=== PATIENT | male | born 1945 | race Caucasian/White ===

== ENCOUNTER → 2019-04-05 10:19 | Outpatient (BNVA) | payer MEDICARE, SELFPAY | PROVIDERS: Family Provider Family Medicine; PCP Family Medicine; Visit Provider Family Medicine | DX: D69.9 Hemorrhagic condition, unspecified (principal); Z79.01 Long term (current) use of anticoagulants | CPT/HCPCS: 85610 ==

== ENCOUNTER → 2019-04-18 10:32 | Outpatient (BNVA) | payer MEDICARE, SELFPAY | PROVIDERS: Family Provider Family Medicine; PCP Family Medicine; Visit Provider Family Medicine | DX: Z79.01 Long term (current) use of anticoagulants (principal) | CPT/HCPCS: 85610 ==

== ENCOUNTER → 2019-04-26 12:02 | Outpatient (BNVA) | payer MEDICARE, SELFPAY | PROVIDERS: Family Provider Family Medicine; PCP Family Medicine; Visit Provider Family Medicine | DX: I48.91 Unspecified atrial fibrillation (principal) | CPT/HCPCS: 85610 ==

== ENCOUNTER → 2019-05-28 10:33 | Outpatient (BNVA) | payer MEDICARE, SELFPAY | PROVIDERS: Family Provider Family Medicine; PCP Family Medicine; Visit Provider Family Medicine | DX: D69.9 Hemorrhagic condition, unspecified (principal) | CPT/HCPCS: 85610 ==

== ENCOUNTER → 2019-08-21 11:01 | Outpatient (BNVA) | payer MEDICARE, SELFPAY | PROVIDERS: Family Provider Family Medicine; PCP Family Medicine; Visit Provider Family Medicine | DX: Z79.01 Long term (current) use of anticoagulants (principal) | CPT/HCPCS: 85610 ==

== ENCOUNTER → 2019-08-27 09:54 | Outpatient (BNVA) | payer MEDICARE, SELFPAY | PROVIDERS: Family Provider Family Medicine; PCP Family Medicine; Visit Provider Nurse Practitioner Family | DX: I50.32 Chronic diastolic (congestive) heart failure (principal); E11.9 Type 2 diabetes mellitus without complications; R39.16 Straining to void | CPT/HCPCS: 80053; 80061; 83036; 84153; 84439; 84443 ==

== ENCOUNTER → 2019-10-01 09:35 | Outpatient (BNVA) | payer MEDICARE, SELFPAY | PROVIDERS: Family Provider Family Medicine; PCP Family Medicine; Visit Provider Urology | DX: R39.16 Straining to void (principal); R97.20 Elevated prostate specific antigen [PSA] | CPT/HCPCS: 81001; 84153 ==

== ENCOUNTER → 2019-10-12 08:10 | Day surgery (SDC) | payer MEDICARE, SELFPAY ==
[2019-10-12 08:18] VITALS: BP 132/73; PULSE 62; RESP 16; TEMP 36.4; O2SAT 97
[2019-10-12] MEDS: sodium chloride 0.9% 1,000 ML 30 ML IV (08:30)
[2019-10-12 08:32] LABS: Glucose Point of Care 188 mg/dL (70-110)
--- NOTE | 2019-10-12 08:45 | ANES.PREANE2 ---
Pre-Anesthetic Assessment Pre-Anesthetic Assessment: Height/Weight: Height 1.78 m Weight 141.521 kg Temp Pulse Resp BP Pulse Ox 97.5 F L 62 16 132/73 97 10/12/19 08:18 10/12/19 08:18 10/12/19 08:18 10/12/19 08:18 10/12/19 08:18 Preop Diagnosis: tori Proposed Procedure: Operation Date: 10/12/19 09:15 Proposed Procedures p Colonoscopy 10891 Z86.010(Not Applicable) - Juanito Miranda MD Was Beta Tyler taken within 24 hours: Yes Last intake: Intake Last Liquid Date 10/11/19 Last Liquid Time 20:30 Last Solid Date 10/10/19 Social: Social History: No alcohol and No tobacco Exam: Pre-Anes Outpt Exam: alert, oriented x 3, clear to auscultation bilaterally and regular rate & rhythm Airway: Submandibular: WNL Cervical ROM: WNL MP: 2 Dentition: False History/ROS: No significant history except as noted and No significant complaints Pulmonary: Pulmonary: FAN, Sleep apnea and SOB CV/HEM: CV/HEM: Afib, Arrythmia, CAD and HTN : : Chronic renal Insufficiency Hepatic: Hepatic: None reported GI: GI: None reported Metabolic: Metabolic: DM and Morbid obesity Musc/skel: Musc/skel: None reported Neuropsych: Neuropsych: None reported Anesthetic Plan: ASA status: 3 Anesthesia: MAC Risk of > 500 ml blood loss (7ml/kg in children): No Meds/Allergies Current Medications: Current Medications Generic Name Dose Route Start Last Admin Trade Name Freq PRN Reason Stop Dose Admin Sodium Chloride 1,000 mls @ 30 ml s/hr 10/12/19 08:15 10/12/19 08:30 Sodium Chloride 0.9% IV 30 mls/hr .Q24H MAYDA Administration PFSH Anesthesia PFSH: Medical History (Updated 10/03/19 @ 15:23 by Juanito Miranda MD) Afib ASHD (arteriosclerotic heart disease) CHF (congestive heart failure) CKD (chronic kidney disease) Diabetes Elevated PSA Enrolled in chronic care management Sleep apnea Surgical History H/O cardiac radiofrequency ablation H/O heart artery stent Family History Mother , 83 Diabetes Hypertension CAD (coronary artery disease) Father , 73 CAD (coronary artery disease) Social History (Updated 10/03/19 @ 14:37 by FRANCSICO Dumont) Smoking and tobacco status: never smoked Alcohol intake: never Marital status: Current occupational status: retired History of recent travel: No Data Anesthesia Other Labs: Laboratory Results - last 48 hr 10/12/19 08:30 POC Glucose 188 Cardiac Studies: No Data to Display
--- NOTE | 2019-10-12 09:29 | W.PM.OPSUD ---
Surgery/Procedure H&P Update DATE OF PROCEDURE: October 12, 2019 DATE H&P PERFORMED: 10/03/19 PREOP DIAGNOSIS: tori PLANNED PROCEDURE: Operation Date: 10/12/19 09:15 Proposed Procedures p Colonoscopy 60968 Z86.010(Not Applicable) - Juanito Miranda MD
--- NOTE | 2019-10-12 09:56 | SUR.OPER ---
1 mL of diluted epi solution injected into bx site
--- NOTE | 2019-10-12 10:12 | SUR.OPER ---
3mL ink placed at bx site of distal ascending colon
[2019-10-12 10:24] VITALS: BP 140/79; PULSE 54; RESP 18; TEMP 36.1; O2SAT 96
--- NOTE | 2019-10-12 10:29 | CT_ITS ---
WS: [id number] CT ABDOMEN PELVIS TECHNIQUE: Contrast-enhanced CT of the abdomen and pelvis with coronal and sagittal reformatted image s. CLINICAL INFORMATION: Mid ascending mass discovered on endoscopy. COMPARISON: None. DLP: 1946.[address] scans at [facility] use at least one of these dose optimization techniques: automat ed exposure control; mA and/or kV adjustment per patient size (includes targeted exams where dose is matched to clinical indication); or iterative reconstruction. FINDINGS: Lobulated polypoid mass in the hepatic flexure measuring 2.3 x 3.4 cm presumably corresponds to the l esion seen on colonoscopy. No significant luminal narrowing. No other visualized lesions. Normal liver. Normal gallbladder. Normal GE junction. Spleen is normal. Fatty atrophy of the pancreas . Small lobulated low-attenuation lesion in or near their the pancreas is nonspecific in appearance. This may represent small pancreatic cyst or peripancreatic lymph node. This can be further evaluated with MRI or followed up with contrast-enhanced CT abdomen pelvis pancreatic protocol. Adrenal glands are normal. Mild renal cortical atrophy. No adenopathy in the upper abdomen. Normal ca liber abdominal aorta. Aortic calcification.Sigmoid diverticulosis. No evidence of acute diverticulitis. Tiny fat-containing umbilical hernia. Slight atelectasis in the lung bases. Minimal lumbar curve. Moderate spondylitic c hanges lumbar spine. CT/CT abdomen pelvis w con* [id number] IMPRESSION: 1. Polypoid intraluminal mass involving the hepatic flexure measuring 2.3 x 3. 4 cm presumably corresponds to the lesion seen on colonoscopy. No other visuali zed lesions. No significant luminal narrowing. 2. No evidence of small or large bowel obstruction. 3. No definite evidence of metastatic disease in the abdomen or pelvis. 4. No abdominal or pelvic lymphadenopathy. 5. Small slightly lobulated low-attenuation lesion or lymph node in or near th e head of the pancreas measuring 1.7 x 1.2 x 2.4 CM. This is nonspecific appear ance and can be further evaluated with MRI or followed up in 3-6 months with co ntrast-enhanced CT abdomen pelvis pancreatic protocol 6. No free fluid in the abdomen or pelvis.
[2019-10-12 10:54] VITALS: BP 121/65; PULSE 56; RESP 18; O2SAT 95
[2019-10-12 11:05] LABS: Basophils # 0.1 10^3/uL (0.0-0.1); Basophils % 0.9 %; Eosinophils # 0.2 10^3/uL (0.0-0.8); Eosinophils % 3.7 %; Hematocrit 36.5 % (42.0-52.0); Lymphocytes # 0.6 10^3/uL (0.8-4.8); Lymphocytes % 10.5 %; Mean Corpuscular HGB Conc 30.1 g/dL (30.0-36.0); Mean Corpuscular Volume 92.9 fL (80-94); Monocytes # 0.7 10^3/uL (0.2-0.9); Neutrophils # 4.03 10^3/uL (1.8-7.7); Neutrophils % 71.7 %; Nucleated Red Blood Cells % 0 %; Platelet Count 228 10^3/cmm (130-400); Red Blood Count 3.93 10^6/uL (4.1-5.3); Red Cell Distribution Width 16.5 % (12.1-15.1); White Blood Count 5.6 10^3/uL (4.0-10.0)
[2019-10-12 11:26] LABS: Fibrinogen 462 mg/dL (174-498); INR 1.26 (0.8-1.2); Partial Thromboplastin Time 26.7 SECONDS (23.9-36.7)
[2019-10-12 11:36] LABS: Platelet Count 228 10^3/cmm (130-400)
[2019-10-12 11:41] LABS: Carcinoembryonic Antigen 4.5 ng/mL (0.0-4.7)
[2019-10-12 11:52] LABS: Alanine Aminotransferase 28 U/L (0-41); Albumin Level 3.7 g/dL (3.5-5.2); Alkaline Phosphatase 95 IU/L (40-130); Aspartate Amino Transferase 32 U/L (0-40); Blood Urea Nitrogen 19 mg/dL (8-23); Calcium 7.8 mg/dL (8.5-10.5); Carbon Dioxide 23 mmol/L (22-29); Chloride 106 mmol/L (98-107); Globulin 2.8 g/dL (1.3-4.6); Glucose 179 mg/dL (65-115); Osmolality Calculated 291 mOsm/kg (285-295); Sodium 140 mmol/L (136-145); Total Bilirubin 0.8 mg/dL (0.15-1.2); Total Protein 6.5 g/dL (6.6-8.7)
[2019-10-12] MEDS: iodixanol 320 mg/mL 100mL Btl IV (13:05)
[2019-10-12] MEDS: iohexol 300 mg/mL 50 mL Btl PO (13:06)
--- NOTE | 2019-10-12 15:17 | P.CONIM_ITS ---
Providers/Reason For Consult Consulting Physican/Specialty*: Dr. Miranda Reason for Consult*: colonic mass Attending Physician: Juanito Miranda MD Primary Care Provider: Armani Ferrara DO History of Present Illness History of Present Illness Luis Grover is a 74 year old male who had undergone a colonoscopy 10 years ago and 5 years ago when polyps were removed. Patient was recently referred due to black stools per rectum. Patient denies any abdominal pain, nausea, vomiting, constipation or diarrhea. No family history of colon cancer. Review of Systems General: Reports: 10 or more systems reviewed and unremarkable except in HPI and below Meds/Allergies Home Medications and Allergies Home Medications Medication Instructions Recorded Confirmed Last Taken Type warfarin 3 mg tablet 3 mg PO .COMPLEX #36 tab 05/28/19 10/10/19 10/08/19 Rx tamsulosin 0.4 mg capsule 0.4 mg PO DAILY #30 cap 06/04/19 10/10/19 Unknown Rx potassium chloride 20 mEq 20 meq PO DAILY #30 tab 06/18/19 10/10/19 Unknown Rx tablet,extended release warfarin 4 mg tablet 4 mg PO .COMPLEX #48 tab 07/10/19 10/10/19 10/08/19 Rx amiodarone 200 mg tablet 200 mg PO DAILY 08/21/19 10/12/19 10/11/19 History aspirin 81 mg tablet,delayed 81 mg PO DAILY 08/21/19 10/10/19 10/08/19 History release ferrous sulfate 325 mg (65 mg 325 mg PO BID 08/21/19 10/12/19 10/11/19 History iron) tablet insulin NPH isoph U-100 human 100 30 unit SUBCUT BID 08/21/19 10/12/19 10/11/19 History unit/mL subcutaneous suspension insulin regular human 10 unit SUBCUT BID 08/21/19 10/12/19 10/11/19 History pioglitazone 45 mg tablet 45 mg PO DAILY #30 tab 09/19/19 10/10/19 Unknown Rx cranberry 500 mg capsule 500 mg PO DAILY cap 10/01/19 10/12/19 10/11/19 History bumetanide 2 mg PO DAILY 10/10/19 10/12/19 10/11/19 History metoprolol tartrate 25 mg tablet 25 mg PO BID #60 tab 10/11/19 10/12/19 10/12/19 07:00 Rx Allergies Allergy/AdvReac Type Severity Reaction Status Date / Time No Known Allergies Allergy Verified 10/03/19 14:34 Current Medications Current Medications Generic Name Dose Route Start Last Admin Trade Name Meryl PRN Reason Stop Dose Admin Sodium Chloride 1,000 mls @ 30 mls/hr 10/12/19 08:15 10/12/19 11:04 Sodium Chloride 0.9% IV Infused .Q24H MAYDA Infusion PFSH Acute PFSH: Medical History Afib ASHD (arteriosclerotic heart disease) CHF (congestive heart failure) CKD (chronic kidney disease) Diabetes Elevated PSA Sleep apnea Surgical History H/O cardiac radiofrequency ablation H/O heart artery stent Family History Mother , 83 Diabetes Hypertension CAD (coronary artery disease) Father , 73 CAD (coronary artery disease) Social History Smoking and tobacco status: never smoked Alcohol intake: never Marital status: Current occupational status: retired History of recent travel: No Vitals/I&O/Wt Last Vital Signs Temp 97 F L 10/12/19 10:24 Pulse 56 L 10/12/19 10:54 Resp 18 10/12/19 10:54 BP 121/65 10/12/19 10:54 Pulse Ox 95 10/12/19 10:54 10/12/19 10/12/19 10/12/19 06:59 14:59 22:59 Intake Total 1100 / 1100 Balance 1100 / 1100 Physical Exam Narrative: EXAM NARRATIVE: HEENT: Normocephalic Eye: Sclera /conjunctiva normal Respiratory and chest: Bilateral clear breath sounds on auscultation Cardiovascular: Normal S1 and S2 heart sounds Abdomen: Soft to palpation, slightly tender right lower quadrant, well-healed scar right lower quadrant Neurological: Oriented to place person and time Skin: Intact, no lesions appreciated on gross exam A&P Assessment and plan (1) History of colon polyps: 74-year-old gentleman with history of colon polyps who underwent colonoscopy by Dr. Miranda today and was noted to have 2 large polyps in the ascending colon concerning for malignancy. The polyps were unresectable endoscopically. The distal lesion was inked. Discussed the findings with the patient, he is scheduled for a CT abdomen pelvis later today and will obtain a CEA. I will see him back in clinic next week with plan for laparoscopic possible open right hemicolectomy. Status: Acute Coding Level of Care Code Acute [employer] For [employer]ults for Kenneth Dempsey Diagnoses History of colon polyps Z86.010
== END | disposition home or self-care (01) ==
PROVIDERS: PCP Family Medicine; Visit Provider Internal Medicine
PROC: 0DJD8ZZ Inspection of Lower Intestinal Tract, Via Natural or Artificial Opening Endoscopic (ICD-10-PCS; CPT 45378; principal; 2019-10-12 09:15)
DX: Z12.11 Encounter for screening for malignant neoplasm of colon (principal); D12.2 Benign neoplasm of ascending colon; I48.91 Unspecified atrial fibrillation; I13.0 Hypertensive heart and chronic kidney disease with heart failure and stage 1 through stage 4 chronic kidney disease, or unspecified chronic kidney disease; I50.9 Heart failure, unspecified; E11.22 Type 2 diabetes mellitus with diabetic chronic kidney disease; N18.9 Chronic kidney disease, unspecified; I25.10 Atherosclerotic heart disease of native coronary artery without angina pectoris; Z86.010 Personal history of colon polyps; Z79.01 Long term (current) use of anticoagulants; Z79.4 Long term (current) use of insulin; G47.30 Sleep apnea, unspecified; E66.01 Morbid (severe) obesity due to excess calories; Z68.41 Body mass index [BMI] 40.0-44.9, adult; Z79.82 Long term (current) use of aspirin
CPT/HCPCS: 12345; 36415; 36416; 45385; 74177; 80053; 82378; 82962; 85025; 85049; 85384; 85610; 85730; 88305; J0171; J2370; J2704; J7030

== ENCOUNTER → 2019-10-15 11:31 | Outpatient (BNVA) | payer MEDICARE, SELFPAY | PROVIDERS: PCP Family Medicine; Visit Provider Internal Medicine | DX: Z01.812 Encounter for preprocedural laboratory examination (principal) | CPT/HCPCS: 87635 ==

== ENCOUNTER 2019-10-17 08:19 | Inpatient (IN) | payer MEDICARE, SELFPAY ==
[2019-10-16 12:58] VITALS: BMI 45.4
[2019-10-17] VITALS (16 sets, daily range): BP systolic 116–151; BP diastolic 49–79; PULSE 57–84; RESP 10–20; TEMP 36.1–36.9; O2SAT 93–99
[2019-10-17] MEDS: sodium chloride 0.9% 1,000 ML 30 ML IV (09:12)
[2019-10-17 09:27] LABS: Glucose Point of Care 181 mg/dL (70-110)
--- NOTE | 2019-10-17 09:29 | P.ANESASSM_ITS ---
Pre-Anesthetic Assessment Pre-Anesthetic Assessment: Height/Weight: Height 1.78 m Weight 143.789 kg Temp Pulse Resp BP Pulse Ox 97.1 F L 63 18 137/79 93 10/17/19 08:51 10/17/19 08:51 10/17/19 08:51 10/17/19 08:51 10/17/19 08:51 Preop Diagnosis: Colon mass Proposed Procedure: Operation Date: 10/17/19 10:45 Proposed Procedures p Laparoscopic Poss Open Right Hemicolectomy 67598 K63.89(Right) - Jackson Partida MD Familial anesthetic complications: none Last intake: Intake Last Liquid Date 10/16/19 Last Liquid Time 20:00 Last Solid Date 10/15/19 Social: Social History: No alcohol and No tobacco Exam: Pre-Anes Outpt Exam: alert, oriented x 3, clear to auscultation bilaterally and regular rate & rhythm Airway: Cervical ROM: WNL MP: 3 Dentition: Other (edentulous) Pulmonary: Pulmonary: FAN and Sleep apnea CV/HEM: CV/HEM: Afib (s/p ablation), CAD (stent last placed 2016 - stopped warfarin 9 days ago) and HTN : : Chronic renal Insufficiency GI: GI: GERD Metabolic: Metabolic: DM, Hyperlipidemia and Morbid obesity Anesthetic Plan: ASA status: 3 Anesthesia: General Risk of > 500 ml blood loss (7ml/kg in children): No Meds/Allergies Current Medications: Current Medications Generic Name Dose Route Start Last Admin Trade Name Freq PRN Reason Stop Dose Admin Sodium Chloride 1,000 mls @ 30 ml s/hr 10/17/19 08:30 10/17/19 09:12 Sodium Chloride 0.9% IV 10/18/19 08:29 30 mls/hr .Q24H MAYDA Administration PFSH Anesthesia PFSH: Medical History (Updated 10/16/19 @ 17:25 by Jackson Partida MD) Afib ASHD (arteriosclerotic heart disease) CHF (congestive heart failure) CKD (chronic kidney disease) Diabetes Elevated PSA Malignant neoplasm of colon Sleep apnea Surgical History (Updated 10/16/19 @ 17:25 by Jackson Partida MD) H/O cardiac radiofrequency ablation H/O heart artery stent History of colonoscopy with polypectomy (~09/2019) dr. lawler- [facility] [place] [facility] [place] Family History Mother , 83 Diabetes Hypertension CAD (coronary artery disease) Father , 73 CAD (coronary artery disease) Social History Smoking and tobacco status: never smoked Alcohol intake: never Marital status: Current occupational status: retired History of recent travel: No Data Anesthesia Other Labs: Laboratory Results - last 48 hr 10/17/19 09:08 POC Glucose 181 Cardiac Studies: No Data to Display
--- NOTE | 2019-10-17 09:30 | W.PM.OPSUD ---
Surgery/Procedure H&P Update DATE OF PROCEDURE: October 17, 2019 DATE H&P PERFORMED: 10/16/19 H&P UPDATE INFORMATION: I have reviewed H&P completed within last 30 days, I have examined patient prior to procedure and No changes to prior documentation PREOP DIAGNOSIS: Colon mass PLANNED PROCEDURE: Operation Date: 10/17/19 10:45 Proposed Procedures p Laparoscopic Poss Open Right Hemicolectomy 61392 K63.89(Right) - Jackson Partida MD
--- NOTE | 2019-10-17 09:34 | ECG_ITS ---
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 Measurements Intervals [place] Rate: 59 P: 85 WA: 212 QRS: -10 QRSD: 83 T: 38 QT: 442 QTc: 440 Interpretive Statements SINUS BRADYCARDIA WITH FIRST DEGREE AV BLOCK Compared to ECG 04/22/2017 06:55:56 First degree AV block now present Atrial fibrillation no longer present Electronically Signed On 10-17-2019 18:50:24 CDT by Sandrita Patrick M.D. [email or web address]
[2019-10-17] MEDS: metroNIDAZOLE IV 500 MG/100 ML PREMIX 100 MG IV ×2 (11:52→20:15)
--- NOTE | 2019-10-17 13:01 | SUR.OPER ---
Family Notified Of Patient's Status Via Phone.
--- NOTE | 2019-10-17 14:08 | SUR.OPER ---
Family Notified Of Patient's Status Via Phone.
--- NOTE | 2019-10-17 15:14 | SUR.PHASEI ---
1509 PATIENT TO PACU FROM OR. RR EVEN AND UNLABORED. SPO2 98% ON SIMPLE MASK AT 8L. PATIENT DENIES PAIN. SHAY CATH IN PLACE.
--- NOTE | 2019-10-17 15:22 | PM.OP ---
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 Post-op Diagnosis: No evidence of peritoneal carcinomatosis No evidence of liver metastasis Ascending colon and transverse colon mass where the area had been increased during colonoscopy Procedure Done: Laparoscopic extended right hemicolectomy with extracorporeal ileocolic stapled [id number] anastomosis Surgeon: Jackson Partida Anesthesia: General Estimated blood loss (mL): 50 IV fluids (mL): 1,000 Urine output (mL): 500 Condition: stable Disposition: PACU Procedure: The patient was taken to the operating room and placed in the modified lithotomy position under general anesthesia after IV antibiotic had been administered. A Steinberg catheter was placed and the abdomen was prepped and draped in a sterile manner. A 2 cm midline supraumbilical incision was made and using open Torres technique the peritoneal cavity was entered and an 11 mm port was placed and 15 mm of pneumoperitoneum was created. 10 mm 30? scope was introduced. 5 mm port was placed in the right upper quadrant, left upper quadrant and in the suprapubic area under direct visualization. The patient was placed in Trendelenburg position and steep tilt to the left placing the small bowel in the left side within the peritoneal cavity and the transverse colon was retracted superiorly. The cecum was retracted laterally and the tenting of the ileocolic pedicle was noted. The peritoneum overlying the pedicle was opened and a window created posterior to the pedicle just lateral to the third portion of the duodenum. Dissection was carried superiorly lateral to the duodenum along the avascular plane. Using LigaSure the ileocolic pedicle was divided. The avascular plane was dissected laterally towards the right paracolic gutter and superiorly towards the hepatic flexure.The transverse mesocolon was divided using LigaSure and this was continued medially. The mid colic vessels were skeletonized and divided with LigaSure. The anterior leaflet of the greater omentum was divided near the midpoint of the transverse colon to enter the lesser sac. The greater omentum was divided using LigaSure and the hepatic flexure was taken down. The dissection was carried along the line of Toldt until the ascending colon and down to ileum to completely free it up. The mesentery of the terminal ileum was divided using LigaSure 20 cc of saline mixed with 20 cc of 0.5% Marcaine mixed with 20 cc of Exparel was injected in the midclavicular line under laparoscopic visualization for a TAP block. At this point the pneumoperitoneum was released and the mobilized colon and small bowel was exteriorized through the supraumbilical incision which had been extended and a wound protector had been placed. Interrupted 4-0 Vicryl suture was placed to approximate the ileum to the transverse colon and enterotomies were created on the transverse colon and small bowel and and 75 mm blue load LUCERO stapler was introduced and fired creating a [id number] stapled anastomosis. There was no bleeding noted from the staple line and enterotomies were grasped with Allis clamps and another load of 75 mm blue load LUCERO stapler x 2 was fired to resect the specimen distal to the enterotomies. 4-0 Vicryl sutures were placed on the edges and the intersection of the staple line. The bowel was reintroduced into the peritoneal cavity and the staple line was covered with omentum. The peritoneal cavity was irrigated with saline. All ports were removed under direct visualization and there was no bleeding noted from the port sites. The fascia at the midline incision was closed using running #1 loop PDS. The wound was irrigated with saline, and subcutaneous tissue approximated using 3-0 Vicryl suture and skin at all 4 port sites were closed with 4-0 Monocryl and Dermabond. The patient is transferred to the recovery room in stable condition with a Steinberg catheter
--- NOTE | 2019-10-17 15:34 | PM.PACU ---
PACU note Post-Anesthesia Exam: awake and vital signs stable Disposition: admitted
--- NOTE | 2019-10-17 15:53 | SUR.PHASEI ---
1540 PATIENT TO MED SURG. PAIN IMPROVED. SHAY CATH IN PLACE. INCISIONS TO ABDOMEN, CDI.
--- NOTE | 2019-10-17 16:01 | PC.NURSE ---
pt has a tshirt, underwear, pants, shoes, dentures, and hearing aids in a clear plastic bag in pt's room.
[2019-10-17] MEDS: sodium chlor 0.45% +KCl 20 mEq 20 MEQ/1,000 ML BAG 100 MEQ IV (16:25)
[2019-10-17] MEDS: famotidine 20 mg/2 mL INJ IVP (16:25)
--- NOTE | 2019-10-17 16:32 | PC.NURSE ---
pt has CPAP machine in pt's room
[2019-10-17] MEDS: HYDROcodone-acetaminophen 5-325 mg Tablet 1 TAB PO ×2 (16:37→23:59)
--- NOTE | 2019-10-17 16:38 | PM.CONSULT ---
Providers/Reason For Consult Consulting Physican/Specialty*: dorothy daniels MD/Internal medicine Reason for Consult*: management of medical comorbidities Attending Physician: Jackson Partida MD Primary Care Provider: Armani Ferrara DO History of Present Illness History of Present Illness Luis Grover is a 74 year old male with PMH CAD s/p stenting, CHF on intermittent prn Lasix, last known EF 65% from 2013, A fib on a/c with Coumadin, on hold for last 10 days for colonoscopy and then surgery, last INR is 1.26. Also has a history of sleep apnea on CPAP. 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 He underwent laparoscopic extended right hemicolectomy with extracorporeal ileocolic anastomosis with Dr. Partida today. Estimated blood loss was 50 mL. No immediate postoperative complications and brought up to the Medr floor for postop monitoring today. Medicine service is consulted for comanagement of medical comorbidities. At this present time patient is complaining of some postop pain but otherwise denies any other symptoms. Review of Systems General: Reports: 10 or more systems reviewed and unremarkable except in HPI and below Const: Denies: fever(s), chills or body aches Eyes: Denies: change in vision, blurry vision or photophobia ENMT: Reports: hoarseness; Denies: throat pain, enlarged tonsils, odynophagia or nasal congestion Card: Denies: chest pain, palpitations, irregular heart rhythm, edema, swelling of feet/ankles, lightheadedness, pre-syncope, dyspnea on exertion or orthopnea Resp: Denies: dyspnea, productive cough, non-productive cough, wheezing, stridor, pain on inspiration, change in phlegm color, hemoptysis or chest congestion GI: Denies: abdominal pain, nausea, vomiting, hematemesis, coffee ground emesis, dysphagia, heartburn, diarrhea, constipation, GI cramping, change in stool character, hematochezia or melena : Denies: flank pain, dysuria, urinary frequency, urinary urgency, urinary hesitancy or hematuria Musc: Denies: neck pain, back pain, extremity pain, joint swelling, joint warmth or deformity Neuro: Denies: headache(s), numbness in extremities, weakness in extremities, sensory changes, difficulty walking, frequent falls, dizziness, vertigo, behavioral changes, Slurred speech present or seizure-like activity Psych: Denies: anxiety, depression, suicidal ideation or homicidal ideation Endo: Denies: polyuria, polydipsia, tired all the time, cold intolerance or hot flashes Juno/Lymph: Denies: easy bruising or easy bleeding Meds/Allergies Home Medications and Allergies Home Medications Medication Instructions Recorded Confirmed Last Taken Type warfarin 3 mg tablet 3 mg PO .COMPLEX #36 tab 05/28/19 10/16/19 10/08/19 Rx tamsulosin 0.4 mg capsule 0.4 mg PO DAILY #30 cap 06/04/19 10/17/19 10/16/19 Rx warfarin 4 mg tablet 4 mg PO .COMPLEX #48 tab 07/10/19 10/16/19 10/08/19 Rx amiodarone 200 mg tablet 200 mg PO DAILY 08/21/19 10/17/19 10/16/19 History aspirin 81 mg tablet,delayed 81 mg PO DAILY 08/21/19 10/16/19 10/15/19 History release ferrous sulfate 325 mg (65 mg 325 mg PO BID 08/21/19 10/17/19 10/16/19 History iron) tablet insulin NPH isoph U-100 human 100 30 unit SUBCUT BID 08/21/19 10/17/19 10/16/19 17:00 History unit/mL subcutaneous suspension pioglitazone 45 mg tablet 45 mg PO DAILY #30 tab 09/19/19 10/17/19 10/16/19 Rx cranberry 500 mg capsule 500 mg PO DAILY cap 10/01/19 10/17/19 10/16/19 History bumetanide 2 mg PO DAILY 10/10/19 10/17/19 10/15/19 History metoprolol tartrate 25 mg tablet 25 mg PO BID #60 tab 10/11/19 10/17/19 10/17/19 Rx erythromycin 500 mg tablet 500 mg PO .COMPLEX #3 tab 10/15/19 10/17/19 10/16/19 Rx neomycin 500 mg tablet 1 gm PO .COMPLEX #6 tab 10/15/19 10/17/19 10/16/19 Rx insulin regular human [Novolin R 10 unit SUBCUT BID 10/16/19 10/17/19 10/16/19 History Regular U-100 Insuln] Allergies Allergy/AdvReac Type Severity Reaction Status Date / Time No Known Allergies Allergy Verified 10/16/19 14:33 Current Medications Current Medications Generic Name Dose Route Start Last Admin Trade Name Freq PRN Reason Stop Dose Admin Hydrocodone Bitart/Acetaminophen 1 tab 10/17/19 15:49 10/17/19 16:37 Nazlini 5-325 Mg PO 1 tab Q6H PRN Administration MODERATE PAIN Famotidine 20 mg 10/17/19 15:49 10/17/19 16:25 Pepcid Inj IVP 20 mg Q12H MAYDA Administration Potassium Chloride/Sodium Chloride 20 meq in 1,000 mls @ 100 mls/hr 10/17/19 15:49 10/17/19 16:25 Sodium Chlor 0.45% +Kcl 20 Meq IV 100 mls/hr .Q10H MAYDA Administration PFSH Acute PFSH: Medical History Afib ASHD (arteriosclerotic heart disease) CHF (congestive heart failure) CKD (chronic kidney disease) Diabetes Elevated PSA Malignant neoplasm of colon Sleep apnea Surgical History H/O cardiac radiofrequency ablation H/O heart artery stent History of colonoscopy with polypectomy (~09/2019) dr. lawler- [facility] [place] Family History Mother , 83 Diabetes Hypertension CAD (coronary artery disease) Father , 73 CAD (coronary artery disease) Social History Smoking and tobacco status: never smoked Alcohol intake: never Marital status: Current occupational status: retired History of recent travel: No Vitals/I&O/Wt Last Vital Signs Temp 97.5 F L 10/17/19 15:49 Pulse 57 L 10/17/19 15:49 Resp 16 10/17/19 15:49 BP 121/72 10/17/19 15:49 Pulse Ox 97 10/17/19 15:49 10/17/19 10/17/19 10/17/19 06:59 14:59 22:59 Intake Total 150 / 150 0 / 150 Output Total 1050 / 1050 Balance 150 / 150 -1050 / -900 Weight last 48 hrs Weight 143.789 kg Physical Exam Narrative: EXAM NARRATIVE: GEN: Awake, alert and oriented, no acute distress CVS: S1S2 N RS: CTA B/L Abd: Soft, nt/nd , bs+ FARMWORKER LIVESTOCK: no focal neuro deficits Urinary Catheter Management^: F: Cath Placed During This Visit: yes Urinary Catheter Date of Insertion: 10/17/19 Urinary Catheter Time of Insertion: 12:00 A&P Assessment and plan (1) Malignant neoplasm of colon: Status post right hemicolectomy with end-to-end anastomosis today. No immediate postoperative complications. 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 Last stenting done in 2017 per patient. Continue aspirin once able to resume p.o. intake. Continue metoprolol 25 mg p.o. twice daily Status: Acute (3) Diabetes: Patient is currently n.p.o. insulin-dependent diabetes at home, takes isophane insulin with a combination of regular insulin. For now we will put him on a sliding scale with insulin aspart, calculate 24-hour requirements after the long-acting insulin. 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 daily. Per patient's at bedside, states that the only take it periodically currently patient is euvolemic. IV fluids are going 800 cc/h at this present time. Once patient is able to start oral intake, reduce these fluids to KVO. Hold Bumex for today. Check BNP Check chest x-ray a.m. Status: Acute Qualifiers: Heart failure type: diastolic Heart failure chronicity: chronic Qualified Code(s): I50.32 - Chronic diastolic (congestive) heart failure (5) BMI 45.0-49.9, adult: Status: Acute (6) Sleep apnea: Is on CPAP machine from home. Doing this for use while in the hospital. Status: Acute Qualifiers: Sleep apnea type: obstructive Qualified Code(s): G47.33 - Obstructive sleep apnea (adult) (pediatric) (7) Afib: Heart rate currently well controlled at 57 bpm. Continue home dose of metoprolol to avoid reflex tachycardia. Continue amiodarone Anticoagulation with Coumadin has been on hold for the last 10 days. Current INR is 1.23. We will discuss with surgery regarding timing of reinitiation of anticoagulation. Status: Acute Qualifiers: Atrial fibrillation type: paroxysmal Qualified Code(s): I48.0 - Paroxysmal atrial fibrillation (8) CHF (congestive heart failure): Status: Acute Qualifiers: Heart failure type: diastolic Heart failure chronicity: chronic Qualified Code(s): I50.32 - Chronic diastolic (congestive) heart failure Consult Attestations Medical Necessity Statement: post op from right hemicolectomy, medical comorbidities as outlined above Coding Level of Care Code Acute Proced Tech for [facility] Fwd Diagnoses Malignant neoplasm of colon C18.2 Colon location: ascending ASHD (arteriosclerotic heart disease) I25.10 Diabetes E11.59; Z79.4 Diabetes mellitus type: type 2 Diabetes mellitus half-way insulin use: with half-way use Diabetes mellitus complication status: with circulatory complication Diabetes mellitus complication detail: with other circulatory complications CHF (congestive heart failure) I50.32 Heart failure type: diastolic Heart failure chronicity: chronic BMI 45.0-49.9, adult Z68.42 Sleep apnea G47.33 Sleep apnea type: obstructive Afib I48.0 Atrial fibrillation type: paroxysmal CHF (congestive heart failure) I50.32 Heart failure type: diastolic Heart failure chronicity: chronic
[2019-10-17 17:15] LABS: Glucose Point of Care 204 mg/dL (70-110)
--- NOTE | 2019-10-17 17:49 | PC.NURSE ---
Per Dr. Daniels, give 4 units of novolog for blood sugar of 204 due to pt being NPO.
[2019-10-17] MEDS: sennosides-docusate Tablet 1 TAB PO (17:53)
[2019-10-17] MEDS: metoprolol tartrate 25 mg Tablet PO (17:54)
--- NOTE | 2019-10-17 18:08 | PC.NURSE ---
END OF SHIFT SUMMARY pt arrived on the unit at 1557 from surgery and has since been slightly drowsy, but is A/Ox4. pt states that he has been feeling nauseous and is in pain. nausea was relieved from zofran and pain was relieved from hyrdocodone. pt is hard of hearing and has hearing aids at bedside. pt also has a change of clothes and dentures at bedside.
[2019-10-17 21:15] LABS: Glucose Point of Care 198 mg/dL (70-110)
[2019-10-17 22:20] LABS: Hepatitis B Surface AB 3.5 (0-8.5); Hepatitis B Surface Antigen Non-Reactive (Nonreactive); Hepatitis C Virus Antibody Non-Reactive (Nonreactive)
[2019-10-18] VITALS (8 sets, daily range): BP systolic 143–177; BP diastolic 75–84; PULSE 59–76; RESP 16–18; TEMP 36.3–36.9; O2SAT 92–97
[2019-10-18] MEDS: sodium chlor 0.45% +KCl 20 mEq 20 MEQ/1,000 ML BAG 100 MEQ IV ×2 (03:34→11:21)
[2019-10-18] MEDS: famotidine 20 mg/2 mL INJ IVP ×2 (03:35→16:07)
--- NOTE | 2019-10-18 04:00 | XR_ITS ---
WS: [id number] Portable AP upright chest, 10/18/2019 Clinical Data: pulm edema Comparison: Portable chest, 10/17/2018. Findings: No nodules, masses or effusions are seen. The heart is enlarged. The pulmonary vascularity isincreased. No pneumonia or pneumothorax is seen. Monitor leads are on the chest wall. XR/XR chest 1V portable [id number] Impression: Cardiomegaly with pulmonary vascular congestion.
[2019-10-18] MEDS: metroNIDAZOLE IV 500 MG/100 ML PREMIX 100 MG IV (04:06)
[2019-10-18 05:00] LABS: Basophils % 0.4 %; Eosinophils % 0.4 %; Hematocrit 40.2 % (42.0-52.0); Lymphocytes # 0.7 10^3/uL (0.8-4.8); Lymphocytes % 6.6 %; Mean Corpuscular HGB Conc 29.9 g/dL (30.0-36.0); Mean Corpuscular Volume 93.9 fL (80-94); Mean Platelet Volume 11.1 fL (7.4-10.4); Monocytes % 10.1 %; Neutrophils # 8.14 10^3/uL (1.8-7.7); Neutrophils % 82.1 %; Nucleated Red Blood Cells % 0 %; Platelet Count 262 10^3/cmm (130-400); Red Blood Count 4.28 10^6/uL (4.1-5.3); Red Cell Distribution Width 16.6 % (12.1-15.1); White Blood Count 9.9 10^3/uL (4.0-10.0)
[2019-10-18 05:58] LABS: Anion Gap 15.5 (5-19); Blood Urea Nitrogen 19 mg/dL (8-23); Calcium 8.6 mg/dL (8.5-10.5); Carbon Dioxide 22 mmol/L (22-29); Chloride 107 mmol/L (98-107); Glucose 211 mg/dL (65-115); NT Pro B Type Natriuretic Pept 130 pg/mL (0-450); Osmolality Calculated 293 mOsm/kg (285-295); Potassium 4.5 mmol/L (3.5-5.1); Sodium 140 mmol/L (136-145)
[2019-10-18 07:31] LABS: Glucose Point of Care 203 mg/dL (70-110)
[2019-10-18] MEDS: bumetanide 1 mg Tablet 2 MG PO (08:00)
[2019-10-18] MEDS: HYDROcodone-acetaminophen 5-325 mg Tablet 1 TAB PO ×2 (08:00→14:49)
[2019-10-18] MEDS: tamsulosin 0.4 mg Capsule PO (08:00)
[2019-10-18] MEDS: metoprolol tartrate 25 mg Tablet PO ×2 (08:00→17:14)
[2019-10-18] MEDS: sennosides-docusate Tablet 1 TAB PO ×2 (08:00→17:13)
[2019-10-18] MEDS: aspirin 81 mg EC Tablet PO (08:00)
[2019-10-18] MEDS: amiodarone 200 mg Tablet PO (08:00)
--- NOTE | 2019-10-18 08:20 | ANE.PACU2 ---
Inpatient post-anesthesia follow up: Airway intact: Yes Vital signs: Temperature 98.0 F Pulse Rate 63 Respiratory Rate 16 Blood Pressure 153/84 Pulse Oximetry 94 Oxygen Delivery Me thod Nasal Cannula Oxygen Flow Rate 3 Fraction of Inspir ed Oxygen Hydration adequate: Yes Nausea and vomiting: No Pain level: 6 Mental status: Baseline
--- NOTE | 2019-10-18 11:14 | P.PN_ITS ---
Subjective Subjective: Interval history: Patient is out of bed in chair, denies any nausea, vomiting, flatus or BM. Pain is controlled Vitals/I&O/Wt Last Vital Signs Temp 97.6 F 10/18/19 11:05 Pulse 62 10/18/19 11:05 Resp 18 10/18/19 11:05 BP 150/75 10/18/19 11:05 Pulse Ox 94 10/18/19 11:05 10/17/19 10/18/19 10/18/19 22:59 06:59 14:59 Intake Total 0 / 1150 1000 / 1150 300 / 300 Output Total 1400 / 1900 500 / 1900 300 / 300 Balance -1400 / -750 500 / -750 0 / 0 Weight last 48 hrs Weight 317 lb Physical Exam Narrative: EXAM NARRATIVE: Abdomen: Soft, nondistended, tender, incision clean dry and intact Urinary Catheter Management^: F: Cath Placed During This Visit: yes, but has since been removed by the nurse Reason for Continuing Indwelling Catheter: Required Immobilization for Trauma or Surgery or Anesthesia Urinary Catheter Date of Insertion: 10/17/19 Urinary Catheter Time of Insertion: 12:00 Date Urinary Catheter Removed: 10/18/19 Time Urinary Catheter Discontinued: 10:39 Data : 10/18/19 04:12 10/18/19 04:12 A&P Assessment and plan (1) S/P right hemicolectomy: 74-year-old gentleman status post extended right hemicolectomy postop day 1 with postop ileus Lab work normal, creatinine at 1.9 which is his baseline. Start clear liquid diet DC Steinberg Decrease IV fluids to 50 cc/h Insulin sliding scale Lovenox SCD for DVT prophylaxis Protonix for GI prophylaxis Senna docusate for bowel regimen Morphine and [place] for pain control Ambulate with physical therapy Appreciate input from Dr. Daniels for medical management Status: Acute Attestations Medical Necessity Statement*: Status post right hemicolectomy Coding Level of Care Code Acute Medical Office Representative for [facility] Fwd Diagnoses S/P right hemicolectomy Z90.49
[2019-10-18 11:32] LABS: Glucose Point of Care 187 mg/dL (70-110)
--- NOTE | 2019-10-18 11:51 | PC.CHAP ---
Pastoral Care Encounter/Spiritual Assessment Type of Contact [] Declined project/production manager imaging visit [] Patient/Family/Request visit [] Outpatient visit [] Follow-up visit [] Physician referral [] Code/Alert [x] Routine visit [] Staff referral [] Actively dying [] Patient sleeping [] Family support [] [] Out of room [] Palliative care [] [x] Receiving care in room [] Pre-surgical visit [] Trauma [] Long length of stay [] ICU visit [] Other: Relational/Emotional Strength [x] Patient feels connected with others/family/visitors/staff [] Distress [] Loneliness/isolation [] Abandonment Spirituality of Patient [x] Person of Margaux [] Attends Jainism of their Margaux [x] Believes in Prayer [] Reads Bible or Confucianist materials [] There are Spiritual issues to be addressed Stna Interventions [x] Prayer [x] Active listening [x] Non-anxious presence [x] Spiritual/emotional support [] Crisis/trauma care [x] Spiritual counseling [] Bereavement support [] Provided bereavement packet [] Provided Bible/devotional materials [] Provided toy/stuffed animal, coloring book to patient or family member [] Provided Communion [] Anointing/Union [] Salvation [x] Completed spiritual assessment [] Other: Impact on Illness or Injury [] Angry [] Fearful [] Anxious [] Often cries [] Exhaustion [] Unable to work [] Unable to attend rastafari [] Unable to walk/stand [] Unable to read [] Unable to drive [] Unable to eat/drink [] Unable to sleep [] Unable to be with family [] Patient intubated [] Other: Summary Removed some of the small intesion & colon, hopes to get to home tomorrow, has good attitude, Time spent with patient 10 mins
[2019-10-18] MEDS: enoxaparin 40 mg/0.4 mL Syringe SUBCUT ×2 (11:54→16:45)
--- NOTE | 2019-10-18 16:40 | PM.PN ---
Subjective Subjective: Interval history: No new complaints today. Pain is currently well controlled. Started on clear liquid diet today. Urine output 1.1 L. Net positive over last 24 hours. 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 Pain is currently well controlled. Tolerated surgery well. 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 Last stenting done in 2017 per patient. Continue aspirin, Continue metoprolol 25 mg p.o. twice daily Status: Acute (3) Diabetes: Fingersticks are currently well controlled between 1 79-200 on medium dose insulin scale. 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 daily to continue Currently euvolemic Fluids reduced to 50cc/hr with initiation of oral intake.. Status: Acute Qualifiers: Heart failure type: diastolic Heart failure chronicity: chronic Qualified Code(s): I50.32 - Chronic diastolic (congestive) heart failure (5) BMI 45.0-49.9, adult: Status: Acute (6) Sleep apnea: Is on CPAP machine from home. Doing this for use while in the hospital. Status: Acute Qualifiers: Sleep apnea type: obstructive Qualified Code(s): G47.33 - Obstructive sleep apnea (adult) (pediatric) (7) Afib: Heart rate currently well controlled Continue home dose of metoprolol to avoid reflex tachycardia. Continue amiodarone Anticoagulation with Coumadin has been on hold for the last 10 days. Current INR is 1.23. Continue to hold warfarin for now, will start patient on therapeutic dose of Lovenox which is renally dosed for creatinine clearance of 40. Status: Acute Qualifiers: Atrial fibrillation type: paroxysmal Qualified Code(s): I48.0 - Paroxysmal atrial fibrillation Attestations Medical Necessity Statement*: Per admitting team Coding Level of Care Code Acute Construction Analyst for [facility] Diagnoses Malignant neoplasm of colon C18.2 Colon location: ascending ASHD (arteriosclerotic heart disease) I25.10 Diabetes E11.59; Z79.4 Diabetes mellitus type: type 2 Diabetes mellitus correction insulin use: with termite control servicer use Diabetes mellitus complication status: with circulatory complication Diabetes mellitus complication detail: with other circulatory complications CHF (congestive heart failure) I50.32 Heart failure type: diastolic Heart failure chronicity: chronic BMI 45.0-49.9, adult Z68.42 Sleep apnea G47.33 Sleep apnea type: obstructive Afib I48.0 Atrial fibrillation type: paroxysmal
[2019-10-18] MEDS: ondansetron 2 mg/ML SDV 2 mL 4 MG IVP (16:41)
[2019-10-18] MEDS: enoxaparin 100 mg/mL Syringe SUBCUT (16:46)
[2019-10-18 17:02] LABS: Glucose Point of Care 184 mg/dL (70-110)
--- NOTE | 2019-10-18 18:11 | PC.NURSE ---
END OF SHIFT SUMMARY pt able to take morning po meds well and has been able to rest throughout the day. at approximately 1630, pt stated i feel like i am going to vomit and zofran was given. after administration, pt stated that he felt better. pt now on a con. carb clear liquid diet.
[2019-10-18 20:33] LABS: Glucose Point of Care 209 mg/dL (70-110)
[2019-10-19] VITALS (9 sets, daily range): BP systolic 137–186; BP diastolic 72–84; PULSE 70–78; RESP 16–19; TEMP 36.7–37.5; O2SAT 88–95
[2019-10-19] MEDS: ondansetron 2 mg/ML SDV 2 mL 4 MG IVP (03:01)
[2019-10-19] MEDS: famotidine 20 mg/2 mL INJ IVP ×2 (04:13→15:25)
[2019-10-19] MEDS: enoxaparin 40 mg/0.4 mL Syringe SUBCUT (05:26)
[2019-10-19] MEDS: enoxaparin 100 mg/mL Syringe SUBCUT (05:26)
[2019-10-19 05:27] LABS: Basophils % 0.5 %; Eosinophils % 0.5 %; Hematocrit 42.1 % (42.0-52.0); Hemoglobin 12.5 g/dL (11.7-16.6); Lymphocytes # 0.4 10^3/uL (0.8-4.8); Lymphocytes % 4.9 %; Mean Corpuscular HGB Conc 29.7 g/dL (30.0-36.0); Mean Corpuscular Hemoglobin 27.8 pg (28.0-34.0); Mean Corpuscular Volume 93.6 fL (80-94); Mean Platelet Volume 11.3 fL (7.4-10.4); Monocytes % 12.8 %; Neutrophils # 6.13 10^3/uL (1.8-7.7); Neutrophils % 81.2 %; Nucleated Red Blood Cells % 0 %; Platelet Count 257 10^3/cmm (130-400); Red Cell Distribution Width 16.6 % (12.1-15.1); White Blood Count 7.6 10^3/uL (4.0-10.0)
[2019-10-19 05:42] LABS: Anion Gap 15.4 (5-19); Blood Urea Nitrogen 19 mg/dL (8-23); Carbon Dioxide 24 mmol/L (22-29); Chloride 102 mmol/L (98-107); Glucose 251 mg/dL (65-115); Osmolality Calculated 289 mOsm/kg (285-295); Potassium 4.4 mmol/L (3.5-5.1); Sodium 137 mmol/L (136-145)
--- NOTE | 2019-10-19 08:03 | PM.PN ---
Subjective Subjective: Interval history: Patient states that his abdominal pain is controlled but he feels a bit nauseated when he stands up, feels a bit bloated. He has been passing some flatus this morning, no bowel movements Vitals/I&O/Wt Last Vital Signs Temp 98.0 F 10/19/19 05:49 Pulse 72 10/19/19 05:49 Resp 18 10/19/19 05:49 BP 146/82 10/19/19 05:49 Pulse Ox 94 10/19/19 05:49 10/18/19 10/19/19 10/19/19 22:59 06:59 14:59 Output Total 180 / 680 200 / 680 Balance -180 / 498.333 -200 / 498.333 Physical Exam Narrative: EXAM NARRATIVE: Abdomen: Soft, distended, minimally tender, incision clean dry and intact Urinary Catheter Management^: F: Cath Placed During This Visit: yes, but has since been removed by the nurse Reason for Continuing Indwelling Catheter: Required Immobilization for Trauma or Surgery or Anesthesia Urinary Catheter Date of Insertion: 10/17/19 Urinary Catheter Time of Insertion: 12:00 Date Urinary Catheter Removed: 10/18/19 Time Urinary Catheter Discontinued: 10:39 Data : 10/19/19 04:11 10/19/19 04:11 A&P Assessment and plan (1) S/P right hemicolectomy: 74-year-old gentleman status post extended right hemicolectomy postop day 2 with postop ileus Lab work normal, creatinine at 1.8 which is his baseline. Continue clear liquid diet, added simethicone for bloating IV fluids to 50 cc/h Insulin sliding scale SCD for DVT prophylaxis Patient started on therapeutic Lovenox due to history of A. fib Protonix for GI prophylaxis Senna docusate for bowel regimen Morphine and [place] for pain control Ambulate with physical therapy Appreciate input from Dr. Daniels for medical management Status: Acute Attestations Medical Necessity Statement*: Postoperative status post right hemicolectomy Coding Level of Care Code Acute Claims Supervisor for [facility] Fwd Diagnoses S/P right hemicolectomy Z90.49
[2019-10-19 08:15] LABS: Glucose Point of Care 275 mg/dL (70-110)
[2019-10-19] MEDS: metoprolol tartrate 25 mg Tablet PO ×2 (08:54→17:55)
[2019-10-19] MEDS: simethicone 80 mg Chew PO (08:54)
[2019-10-19] MEDS: sennosides-docusate Tablet 1 TAB PO ×2 (08:54→17:55)
[2019-10-19] MEDS: bumetanide 1 mg Tablet 2 MG PO (08:54)
[2019-10-19] MEDS: aspirin 81 mg EC Tablet PO (08:54)
[2019-10-19] MEDS: tamsulosin 0.4 mg Capsule PO (08:54)
[2019-10-19] MEDS: amiodarone 200 mg Tablet PO (08:54)
[2019-10-19] MEDS: hyDRALAzine 10 mg Tablet PO ×2 (10:51→14:28)
[2019-10-19 12:08] LABS: Glucose Point of Care 246 mg/dL (70-110)
[2019-10-19 14:46] LABS: HIV 1 & 2 Antibody Non-Reactive (Non-Reactiv); HIV 1 & 2 Antigen Non-Reactive (Non-Reactiv)
--- NOTE | 2019-10-19 15:51 | PM.PN ---
Subjective Subjective: Interval history: Patient is in good spirits. He had a bowel movement this morning. Pain at this present time. He is able to walk from the bed into the bathroom without any discomfort. Medications: Reviewed: Yes Vitals/I&O/Wt Last Vital Signs Temp 98.5 F 10/19/19 12:00 Pulse 71 10/19/19 12:00 Resp 18 10/19/19 12:00 BP 137/72 10/19/19 14:30 Pulse Ox 94 10/19/19 12:00 10/19/19 10/19/19 10/19/19 06:59 14:59 22:59 Intake Total 240 / 240 Output Total 200 / 680 425 / 425 Balance -200 / 498.333 240 / 240 -425 / -185 Physical Exam Narrative: EXAM NARRATIVE: GEN: Awake, alert and oriented, no acute distress CVS: S1S2 N RS: CTA B/L Abd: Soft, nt/nd , bs+ TRIM STENCIL MAKER: no focal neuro deficits EXT: Minimal pitting edema over left lower extremity. Urinary Catheter Management^: F: Cath Placed During This Visit: yes, but has since been removed by the nurse Reason for Continuing Indwelling Catheter: Required Immobilization for Trauma or Surgery or Anesthesia Urinary Catheter Date of Insertion: 10/17/19 Urinary Catheter Time of Insertion: 12:00 Date Urinary Catheter Removed: 10/18/19 Time Urinary Catheter Discontinued: 10:39 Data : 10/19/19 04:11 10/19/19 04:11 A&P Assessment and plan (1) Malignant neoplasm of colon: Status post right hemicolectomy with end-to-end anastomosis 10/16. Pain is currently well controlled. Tolerated surgery well. Started on a full liquid diet. 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 Last stenting done in 2017 per patient. Continue aspirin, Continue metoprolol 25 mg p.o. 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 daily to continue Developing minimal left lower extremity pitting edema today. Discontinue IV fluids as is tolerating an oral diet. Saturating 94% on room air CPAP to continue at nighttime. Status: Acute Qualifiers: Heart failure type: diastolic Heart failure chronicity: chronic Qualified Code(s): I50.32 - Chronic diastolic (congestive) heart failure (5) BMI 45.0-49.9, adult: Continue CPAP for sleep apnea Status: Acute (6) Sleep apnea: Is on CPAP machine from home. Doing this for use while in the hospital. Status: Acute Qualifiers: Sleep apnea type: obstructive Qualified Code(s): G47.33 - Obstructive sleep apnea (adult) (pediatric) (7) Afib: Heart rate currently well controlled Continue home dose of metoprolol to avoid reflex tachycardia. Continue amiodarone Anticoagulation with Coumadin has been on hold for the last 10 days. Current INR is 1.23. Continue to hold warfarin for now, currently on therapeutic dose of Lovenox which is renally dosed 24-hour dosing for creatinine clearance of 40. Avoid Raising to every 12 hours dosing for now given recent surgery. Will coordinate with surgery regarding reinitiaon of warfarin Status: Acute Qualifiers: Atrial fibrillation type: paroxysmal Qualified Code(s): I48.0 - Paroxysmal atrial fibrillation (8) Hypertension: Add amlodipine 5 mg p.o. daily Added hydralazine 10 mg p.o. 3 times daily for systolic blood pressure is 1 70-1 80 this morning. with 10mg dosage is now improved to systolic 137. Status: Acute Attestations Medical Necessity Statement*: Per admitting team Coding Level of Care Code Acute Certified Registered Locksmith for [facility] [place] Diagnoses Malignant neoplasm of colon C18.2 Colon location: ascending ASHD (arteriosclerotic heart disease) I25.10 Diabetes E11.59; Z79.4 Diabetes mellitus type: type 2 Diabetes mellitus retirement insulin use: with equipment operator intermodal yard use Diabetes mellitus complication status: with circulatory complication Diabetes mellitus complication detail: with other circulatory complications CHF (congestive heart failure) I50.32 Heart failure type: diastolic Heart failure chronicity: chronic BMI 45.0-49.9, adult Z68.42 Sleep apnea G47.33 Sleep apnea type: obstructive Afib I48.0 Atrial fibrillation type: paroxysmal Hypertension I10
[2019-10-19 17:24] LABS: Glucose Point of Care 175 mg/dL (70-110)
[2019-10-20 01:01] VITALS: BP 150/85; PULSE 73; RESP 20; TEMP 36.7; O2SAT 91
[2019-10-20] MEDS: ondansetron 2 mg/ML SDV 2 mL 4 MG IVP ×3 (01:56→20:27)
[2019-10-20] MEDS: enoxaparin 40 mg/0.4 mL Syringe SUBCUT (04:07)
[2019-10-20] MEDS: famotidine 20 mg/2 mL INJ IVP ×2 (04:07→14:28)
[2019-10-20] MEDS: enoxaparin 100 mg/mL Syringe SUBCUT (04:07)
[2019-10-20 04:14] VITALS: BP 154/87; PULSE 74; RESP 18; TEMP 36.9; O2SAT 90
[2019-10-20 04:35] LABS: Basophils % 0.2 %; Eosinophils % 0.5 %; Hematocrit 40.9 % (42.0-52.0); Hemoglobin 12.6 g/dL (11.7-16.6); Lymphocytes # 0.5 10^3/uL (0.8-4.8); Lymphocytes % 8.5 %; Mean Corpuscular HGB Conc 30.8 g/dL (30.0-36.0); Mean Corpuscular Volume 90.9 fL (80-94); Mean Platelet Volume 10.8 fL (7.4-10.4); Monocytes % 17.6 %; Neutrophils # 4.15 10^3/uL (1.8-7.7); Nucleated Red Blood Cells % 0 %; Platelet Count 269 10^3/cmm (130-400); Red Cell Distribution Width 16.4 % (12.1-15.1); White Blood Count 5.7 10^3/uL (4.0-10.0)
[2019-10-20 04:47] LABS: INR 1.06 (0.8-1.2)
[2019-10-20 04:58] LABS: Anion Gap 14.1 (5-19); Blood Urea Nitrogen 21 mg/dL (8-23); Calcium 8.8 mg/dL (8.5-10.5); Carbon Dioxide 26 mmol/L (22-29); Chloride 102 mmol/L (98-107); Glucose 240 mg/dL (65-115); Osmolality Calculated 290 mOsm/kg (285-295); Potassium 4.1 mmol/L (3.5-5.1); Sodium 138 mmol/L (136-145)
[2019-10-20 07:23] VITALS: BP 149/73; PULSE 72; RESP 18; TEMP 36.6; O2SAT 90
[2019-10-20 07:35] LABS: Glucose Point of Care 233 mg/dL (70-110)
--- NOTE | 2019-10-20 07:39 | P.PN_ITS ---
Subjective Subjective: Interval history: Subjectively better today. States his abdomen is less bloated. He had a bowel movement yesterday. He is able to pass flatus. He remains afebrile and hemodynamically stable. Medications: Reviewed: Yes Vitals/I&O/Wt Last Vital Signs Temp 97.8 F 10/20/19 07:23 Pulse 72 10/20/19 07:23 Resp 18 10/20/19 07:23 BP 149/73 10/20/19 07:23 Pulse Ox 90 10/20/19 07:23 10/19/19 10/20/19 10/20/19 22:59 06:59 14:59 Intake Total 120 / 360 Output Total 525 / 525 300 / 825 Balance -405 / -165 -300 / -465 Physical Exam Narrative: EXAM NARRATIVE: GEN: Awake, alert and oriented, no acute distress CVS: S1S2 N RS: CTA B/L Abd: Soft, nt/nd , bs+ COMMUNICATIONS TOWER CLIMBER: no focal neuro deficits EXT: Minimal pitting edema over left lower extremity. Urinary Catheter Management^: F: Cath Placed During This Visit: yes, but has since been removed by the nurse Reason for Continuing Indwelling Catheter: Required Immobilization for Trauma or Surgery or Anesthesia Urinary Catheter Date of Insertion: 10/17/19 Urinary Catheter Time of Insertion: 12:00 Date Urinary Catheter Removed: 10/18/19 Time Urinary Catheter Discontinued: 10:39 Data : 10/20/19 04:10 10/20/19 04:10 A&P Assessment and plan (1) Malignant neoplasm of colon: Status post right hemicolectomy with end-to-end anastomosis 10/16. Pain is currently well controlled. Tolerated surgery well. Started on a full liquid diet. Passing flatus and having small bowel movements. 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 Last stenting done in 2017 per patient. Continue aspirin, Continue metoprolol 25 mg p.o. twice daily Status: Acute (3) Diabetes: Fingersticks are currently well controlled. 15 units of Lantus were added last night. Status: Acute Qualifiers: Diabetes mellitus type: type 2 Diabetes mellitus remote computer terminal operator insulin use: with remote computer terminal operator use Diabetes mellitus complication status: with circulatory complication Diabetes mellitus complication detail: with other circulatory complications Qualified Code(s): E11.59 - Type 2 diabetes mellitus with other circulatory complications; Z79.4 - FDC (current) use of insulin (4) CHF (congestive heart failure): Home dose of Bumex 2 mg p.o. daily to continue Saturating 94% on room air CPAP to continue at nighttime. Status: Acute Qualifiers: Heart failure type: diastolic Heart failure chronicity: chronic Qualified Code(s): I50.32 - Chronic diastolic (congestive) heart failure (5) BMI 45.0-49.9, adult: Continue CPAP for sleep apnea Status: Acute (6) Sleep apnea: Is on CPAP machine from home. Doing this for use while in the hospital. Status: Acute Qualifiers: Sleep apnea type: obstructive Qualified Code(s): G47.33 - Obstructive sleep apnea (adult) (pediatric) (7) Afib: Heart rate currently well controlled Continue home dose of metoprolol Continue amiodarone Continue to hold warfarin for now, currently on therapeutic dose of Lovenox which is renally dosed 24-hour dosing for creatinine clearance of 40. Avoid Raising to every 12 hours dosing for now given recent surgery. Will coordinate with surgery regarding reinitiaon of warfarin Status: Acute Qualifiers: Atrial fibrillation type: paroxysmal Qualified Code(s): I48.0 - Paroxy smal atrial fibrillation (8) Hypertension: Increase amlodipine to 10 mg p.o. daily. hydralazine 10 mg p.o. 3 times daily as needed. Patient reports that he has no past history of high blood pressure. He will be discharged on amlodipine 10 mg daily and instructed to keep a blood pressure log over the next week. Status: Acute Attestations Medical Necessity Statement*: Per admitting team Coding Level of Care Code Acute Atg Architect for [facility] [place] Diagnoses Malignant neoplasm of colon C18.2 Colon location: ascending ASHD (arteriosclerotic heart disease) I25.10 Diabetes E11.59; Z79.4 Diabetes mellitus type: type 2 Diabetes mellitus mcc insulin use: with remote computer terminal operator use Diabetes mellitus complication status: with circulatory complication Diabetes mellitus complication detail: with other circulatory complications CHF (congestive heart failure) I50.32 Heart failure type: diastolic Heart failure chronicity: chronic BMI 45.0-49.9, adult Z68.42 Sleep apnea G47.33 Sleep apnea type: obstructive Afib I48.0 Atrial fibrillation type: paroxysmal Hypertension I10
[2019-10-20] MEDS: sennosides-docusate Tablet 1 TAB PO ×2 (08:00→17:22)
[2019-10-20] MEDS: aspirin 81 mg EC Tablet PO (08:01)
[2019-10-20] MEDS: amiodarone 200 mg Tablet PO (08:01)
[2019-10-20] MEDS: tamsulosin 0.4 mg Capsule PO (08:01)
[2019-10-20] MEDS: amlodipine 5 mg Tablet PO ×2 (08:01→16:30)
[2019-10-20] MEDS: metoprolol tartrate 25 mg Tablet PO ×2 (08:01→17:22)
[2019-10-20] MEDS: bumetanide 1 mg Tablet 2 MG PO (08:01)
--- NOTE | 2019-10-20 10:52 | XRR_ITS ---
PROCEDURE INFORMATION: Exam: XR Abdomen, 2 Views Exam date and time: 10/20/2019 2:32 PM Age: 74 years old Clinical indication: Bloating; Additional info: Post hemicolectomy, distended TECHNIQUE: Imaging protocol: XR of the abdomen. Views: 2 Views. COMPARISON: CT abdomen pelvis w con* [id number] 10/12/2019 12:52 PM FINDINGS: Gastrointestinal tract: Small bowel dilatation and air-fluid levels, in a pattern worrisome for small bowel obstruction. Bones/joints: Degenerative change. Soft tissues: Calcification at the gluteal muscle attachment sites. XR/XR abdomen min 2V [id number] IMPRESSION: Small bowel dilatation and air-fluid levels, in a pattern worrisome for small bowel obstruction.
[2019-10-20 10:53] LABS: Glucose Point of Care 230 mg/dL (70-110)
[2019-10-20 11:14] VITALS: BP 140/76; PULSE 73; RESP 18; TEMP 36.4; O2SAT 96
--- NOTE | 2019-10-20 11:45 | PC.SOCIAL ---
Pg 2 IMM. Explained to pt Pg 2 IMM. Provided pt a copy. Pt verbally understands. No questions voiced. Signed, dated, & timed a copy & placed in chart.
--- NOTE | 2019-10-20 14:16 | P.PN_ITS ---
Subjective Subjective: Interval history: Patient feels a lot better compared to yesterday, still burping quite a bit. Passing flatus and had multiple small bowel movements Vitals/I&O/Wt Last Vital Signs Temp 97.6 F 10/20/19 11:14 Pulse 73 10/20/19 11:14 Resp 18 10/20/19 11:14 BP 140/76 10/20/19 11:14 Pulse Ox 96 10/20/19 11:14 10/19/19 10/20/19 10/20/19 22:59 06:59 14:59 Intake Total 120 / 360 360 / 360 Output Total 525 / 825 300 / 825 650 / 650 Balance -405 / -465 -300 / -465 -290 / -290 Physical Exam Narrative: EXAM NARRATIVE: Abdomen: Soft, distended, no guarding or rigidity, incisions healing well Urinary Catheter Management^: F: Cath Placed During This Visit: yes, but has since been removed by the nurse Reason for Continuing Indwelling Catheter: Required Immobilization for Trauma or Surgery or Anesthesia Urinary Catheter Date of Insertion: 10/17/19 Urinary Catheter Time of Insertion: 12:00 Date Urinary Catheter Removed: 10/18/19 Time Urinary Catheter Discontinued: 10:39 Data : 10/20/19 04:10 10/20/19 04:10 A&P Assessment and plan (1) S/P right hemicolectomy: 74-year-old gentleman status post extended right hemicolectomy postop day 3 with postop ileus appears to be resolving Stay on full liquid diet, patient states that the simethicone helped with the bloating. I have also add some Maalox given his complaints of significant burping IV fluids to 50 cc/h Insulin sliding scale SCD for DVT prophylaxis Patient started on therapeutic Lovenox due to history of A. fib Protonix for GI prophylaxis Senna docusate for bowel regimen Morphine and [place] for pain control Ambulate with physical therapy Appreciate input from Dr. Daniels for medical management Patient is open to the idea of going home tomorrow, will reassess with potential discharge tomorrow Status: Acute Attestations Medical Necessity Statement*: Status post right hemicolectomy with postop ileus resolving Coding Level of Care Code Acute Drum Sealer for [facility] Diagnoses S/P right hemicolectomy Z90.49
[2019-10-20 15:13] VITALS: BP 164/74; PULSE 71; RESP 18; TEMP 36.8; O2SAT 96
[2019-10-20 16:44] LABS: Glucose Point of Care 226 mg/dL (70-110)
--- NOTE | 2019-10-20 17:24 | PC.NURSE ---
SHIFT SUMMARY PATIENT HAS DONE WELL TODAY. PATIENT'S ABDOMEN IS DISTENDED AND HE HAS HYPOACTIVE BOWEL SOUNDS. PATIENT HAS HAD 2 SMALL BOWEL MOVEMENTS TODAY AND AROUND 1000ML OF URINE OUTPUT. PATIENT HAD A MOMENT OF NAUSEA THIS AFTERNOON. THIS NURSE ADMINISTERED ZOFRAN AND NAUSEA HAS NOW SUBSIDED. PATIENT HAS BEEN UP AND AMBULATING SEVERAL TIMES TODAY. TOLERATING WELL. BLOOD PRESSURE SLIGHTLY ELEVATED THIS AFTERNOON. THIS NURSE ADMINISTERED A DOSE OF NORVASC. CONTINUING TO MONITOR.
[2019-10-20 19:42] VITALS: BP 132/69; PULSE 75; RESP 20; TEMP 36.7; O2SAT 96
--- NOTE | 2019-10-20 21:06 | PC.NURSE ---
Patient stated feel nauseous. Patient's nurse been notified.
--- NOTE | 2019-10-20 21:13 | PC.NURSE ---
Patient with continuos c/o of nausea with multiple episodes of throwing up, given IV zofran without limitid improvements, notified Dr. Partida with orders to place a NG tube to LIS, with abd series at 6 am in morning, as well as verify orders for a CBC and BMP for AM.
[2019-10-20 21:25] LABS: Glucose Point of Care 215 mg/dL (70-110)
[2019-10-20] MEDS: insulin glargine 100 units/1 mL 15 UNIT SUBCUT (21:37)
[2019-10-21] VITALS (7 sets, daily range): BP systolic 143–164; BP diastolic 77–85; PULSE 69–79; RESP 16–20; TEMP 36.3–36.8; O2SAT 92–99
[2019-10-21] MEDS: enoxaparin 100 mg/mL Syringe SUBCUT (04:24)
[2019-10-21] MEDS: enoxaparin 40 mg/0.4 mL Syringe SUBCUT (04:24)
[2019-10-21] MEDS: famotidine 20 mg/2 mL INJ IVP ×2 (04:24→17:46)
[2019-10-21 05:09] LABS: Basophils % 0.3 %; Eosinophils % 0.3 %; Hematocrit 42.3 % (42.0-52.0); Lymphocytes # 0.4 10^3/uL (0.8-4.8); Lymphocytes % 10.3 %; Mean Corpuscular HGB Conc 30.7 g/dL (30.0-36.0); Monocytes # 0.9 10^3/uL (0.2-0.9); Monocytes % 23.7 %; Neutrophils # 2.34 10^3/uL (1.8-7.7); Neutrophils % 65.1 %; Nucleated Red Blood Cells % 0 %; Platelet Count 295 10^3/cmm (130-400); Red Blood Count 4.65 10^6/uL (4.1-5.3); Red Cell Distribution Width 16.2 % (12.1-15.1); White Blood Count 3.6 10^3/uL (4.0-10.0)
[2019-10-21 05:42] LABS: Anion Gap 14.8 (5-19); Blood Urea Nitrogen 25 mg/dL (8-23); Calcium 9.2 mg/dL (8.5-10.5); Carbon Dioxide 30 mmol/L (22-29); Chloride 98 mmol/L (98-107); Glucose 251 mg/dL (65-115); Osmolality Calculated 293 mOsm/kg (285-295); Potassium 3.8 mmol/L (3.5-5.1); Sodium 139 mmol/L (136-145)
--- NOTE | 2019-10-21 06:00 | XRR_ITS ---
PROCEDURE INFORMATION: Exam: XR Complete Acute Abdomen Series Exam date and time: 10/21/2019 8:38 AM Age: 74 years old Clinical indication: Nausea and vomiting; Prior surgery; Surgery type: Stents; Additional info: N/v, abd distension TECHNIQUE: Imaging protocol: XR complete acute abdomen series, including 2 or more views of the abdomen and a single view chest. COMPARISON: CR XR abdomen min 2V [id number] 10/20/2019 2:15 PM FINDINGS: Tubes, catheters and devices: The feeding tube enters the stomach with the tip in the gastric antrum. Lungs: Mild left lateral basilar and right apical subsegmental atelectasis. The pulmonary vasculature is normal. Pleural space: Minimal right pleural effusion. No pneumothorax. Heart/Mediastinum: Borderline cardiomegaly. Gastrointestinal tract: Persistent dilatation of predominantly mid abdominal and left upper quadrant small bowel loops with differential air-fluid levels. Intraperitoneal space: Normal. No free air. Vasculature: Calcified phleboliths are present in the lower pelvis bilaterally. Bones/joints: Normal. No acute fracture. Soft tissues: Normal. XR/XR acute abdomen series [id number] IMPRESSION: 1. Mild left lateral basilar and right apical subsegmental atelectasis. 2. Feeding tube tip in the gastric antrum. 3. Findings consistent with ongoing, possibly increased partial mid small bowel obstruction. 4. Minimal right pleural effusion.
[2019-10-21 06:57] LABS: Glucose Point of Care 195 mg/dL (70-110)
[2019-10-21] MEDS: bumetanide 1 mg Tablet 2 MG PO (09:52)
[2019-10-21] MEDS: sennosides-docusate Tablet 1 TAB PO ×2 (09:52→17:53)
[2019-10-21] MEDS: metoprolol tartrate 25 mg Tablet PO ×2 (09:53→17:53)
[2019-10-21] MEDS: aspirin 81 mg EC Tablet PO (09:53)
[2019-10-21] MEDS: amiodarone 200 mg Tablet PO (09:53)
[2019-10-21] MEDS: amlodipine 10 mg Tablet PO (09:53)
[2019-10-21] MEDS: tamsulosin 0.4 mg Capsule PO (09:53)
--- NOTE | 2019-10-21 09:54 | PM.PN ---
Subjective Subjective: Interval history: Patient developed nausea last night and an NG tube was placed and about 700 cc of bilious material was aspirated. Patient has not had any flatus or BM since yesterday morning. Denies any significant abdominal pain, his nausea resolved after placement of the NG tube Vitals/I&O/Wt Last Vital Signs Temp 98.1 F 10/21/19 07:36 Pulse 71 10/21/19 07:36 Resp 17 10/21/19 07:36 BP 157/85 10/21/19 07:36 Pulse Ox 97 10/21/19 07:36 10/20/19 10/21/19 10/21/19 22:59 06:59 14:59 Intake Total 340 / 700 Output Total 300 / 1650 Balance 40 / -950 Physical Exam Narrative: EXAM NARRATIVE: Abdomen: Soft, less distended, nontender, incisions clean dry and intact, NG tube to low intermittent suction Urinary Catheter Management^: F: Cath Placed During This Visit: yes, but has since been removed by the nurse Reason for Continuing Indwelling Catheter: Required Immobilization for Trauma or Surgery or Anesthesia Urinary Catheter Date of Insertion: 10/17/19 Urinary Catheter Time of Insertion: 12:00 Date Urinary Catheter Removed: 10/18/19 Time Urinary Catheter Discontinued: 10:39 Data : 10/21/19 04:20 10/21/19 04:20 A&P Assessment and plan (1) S/P right hemicolectomy: 74-year-old gentleman status post extended right hemicolectomy postop day 4 with postop ileus, developed nausea and abdominal distention with NG tube placement. Abdominal x-ray is concerning for partial small bowel obstruction. Increase IV fluids to 100 cc/h NG tube to low intermittent suction Insulin sliding scale SCD for DVT prophylaxis Patient started on therapeutic Lovenox due to history of A. fib Protonix for GI prophylaxis Lactulose for bowel regimen, will try fleets enema today Morphine and [place] for pain control Ambulate with physical therapy Appreciate input from Dr. 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
[2019-10-21 10:47] LABS: Glucose Point of Care 227 mg/dL (70-110)
[2019-10-21] MEDS: lactulose oral liq 20 gm/30 mL UDC 10 GM PO ×2 (11:52→21:46)
[2019-10-21] MEDS: Fleet Enema 133 mL Enema PR (11:53)
[2019-10-21] MEDS: sodium chlor 0.45% +KCl 20 mEq 20 MEQ/1,000 ML BAG 100 MEQ IV (11:58)
--- NOTE | 2019-10-21 14:17 | P.PN_ITS ---
Subjective Subjective: Interval history: Interim events since yesterday have included development of nausea last night, abdominal distention and x-ray concerning for partial small bowel obstruction. He had an NG tube placed with removal of 700 cc of biliary output. NG tube to low intermittent suction., Getting Fleet enemas today. Ambulating in the hallway with help of a walker this afternoon. Medications: Reviewed: Yes Vitals/I&O/Wt Last Vital Signs Temp 98.3 F 10/21/19 12:00 Pulse 79 10/21/19 12:00 Resp 16 10/21/19 12:00 BP 152/80 10/21/19 12:00 Pulse Ox 92 10/21/19 12:00 10/20/19 10/21/19 10/21/19 22:59 06:59 14:59 Intake Total 340 / 700 90 / 90 Output Total 300 / 1650 1000 / 1000 Balance 40 / -950 -910 / -910 Physical Exam 2 Narrative: EXAM NARRATIVE: GEN: Awake, alert and oriented, no acute distress HEENT: NGT in place. CVS: S1S2 N RS: CTA B/L Abd: Soft, nt/nd , bs+ VALIDATION ANALYST: no focal neuro deficits Urinary Catheter Management^: F: Cath Placed During This Visit: yes, but has since been removed by the nurse Reason for Continuing Indwelling Catheter: Required Immobilization for Trauma or Surgery or Anesthesia Urinary Catheter Date of Insertion: 10/17/19 Urinary Catheter Time of Insertion: 12:00 Date Urinary Catheter Removed: 10/18/19 Time Urinary Catheter Discontinued: 10:39 Data : 10/21/19 04:20 10/21/19 04:20 A&P Assessment and plan (1) Malignant neoplasm of colon: Status post right hemicolectomy with end-to-end anastomosis 10/16. Pain is currently well controlled. Tolerated surgery well. Overnight on 9 5 developed nausea and was found to have partial small bowel obstruction for which NGT has been placed. He is n.p.o. again at this time. 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 Last stenting done in 2017 per patient. Continue aspirin, Continue metoprolol 25 mg p.o. twice daily. Expected to be prolonged n.p.o., will address change clerk beta-blockers to IV. Status: Acute (3) Diabetes: Fingersticks are currently well controlled. Continue 15 units of Lantus and sliding scale insulin. 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 CPAP to continue at nighttime. Status: Acute Qualifiers: Heart failure type: diastolic Heart failure chronicity: chronic Qualified Code(s): I50.32 - Chronic diastolic (congestive) heart failure (5) BMI 45.0-49.9, adult: Continue CPAP for sleep apnea Status: Acute (6) Sleep apnea: Is on CPAP machine from home. Status: Acute Qualifiers: Sleep apnea type: obstructive Qualified Code(s): G47.33 - Obstructive sleep apnea (adult) (pediatric) (7) Afib: Heart rate currently well controlled Continue home dose of metoprolol, if prolonged n.p.o., will need to be switched over to IV. Continue amiodarone Continue to hold warfarin for now, currently on therapeutic dose of Lovenox which is renally dosed 24-hour dosing for creatinine clearance of 40. Avoid Raising to every 12 hours dosing for now given recent surgery and now partial SBO. Will coordinate with surgery regarding reinitiaon of warfarin Status: Acute Qualifiers: Atrial fibrillation type: paroxysmal Qualified Code(s): I48.0 - Paroxysmal atrial fibrillation (8) Hypertension: Increased amlodipine to 10 mg p.o. daily. with better control Will change hydralazine from p.o. to IV as needed. Once patient able to restart p.o. intake, may resume over the. Status: Acute Attestations Medical Necessity Statement*: Please see admitting team's note Coding Level of Care Code Acute Program Mgr for [facility] Diagnoses Malignant neoplasm of colon C18.2 Colon location: ascending ASHD (arteriosclerotic heart disease) I25.10 Diabetes E11.59; Z79.4 Diabetes mellitus type: type 2 Diabetes mellitus bracelet form coverer insulin use: with bracelet form coverer use Diabetes mellitus complication status: with circulatory complication Diabetes mellitus complication detail: with other circulatory complications CHF (congestive heart failure) I50.32 Heart failure type: diastolic Heart failure chronicity: chronic BMI 45.0-49.9, adult Z68.42 Sleep apnea G47.33 Sleep apnea type: obstructive Afib I48.0 Atrial fibrillation type: paroxysmal Hypertension I10
--- NOTE | 2019-10-21 14:39 | PC.NURSE ---
dr ortez seen pt and stated the pt is to have NG tube flushed 2-3x day with 40cc to keep ng from being clogged.
[2019-10-21 16:59] LABS: Glucose Point of Care 224 mg/dL (70-110)
[2019-10-21 20:50] LABS: Glucose Point of Care 226 mg/dL (70-110)
[2019-10-21] MEDS: insulin glargine 100 units/1 mL 15 UNIT SUBCUT (21:46)
[2019-10-22 04:00] VITALS: BP 138/74; PULSE 75; RESP 18; TEMP 36.6; O2SAT 98
[2019-10-22 04:27] LABS: Hematocrit 42.7 % (42.0-52.0); Hemoglobin 13.1 g/dL (11.7-16.6); Mean Corpuscular HGB Conc 30.7 g/dL (30.0-36.0); Mean Corpuscular Volume 91.2 fL (80-94); Mean Platelet Volume 10.8 fL (7.4-10.4); Platelet Count 278 10^3/cmm (130-400); Red Blood Count 4.68 10^6/uL (4.1-5.3); Red Cell Distribution Width 15.9 % (12.1-15.1); White Blood Count 4.1 10^3/uL (4.0-10.0)
[2019-10-22 04:49] LABS: Anion Gap 15.8 (5-19); Blood Urea Nitrogen 28 mg/dL (8-23); Calcium 9.2 mg/dL (8.5-10.5); Carbon Dioxide 31 mmol/L (22-29); Chloride 97 mmol/L (98-107); Glucose 255 mg/dL (65-115); Osmolality Calculated 296 mOsm/kg (285-295); Potassium 3.8 mmol/L (3.5-5.1); Sodium 140 mmol/L (136-145)
[2019-10-22] MEDS: famotidine 20 mg/2 mL INJ IVP ×2 (04:51→15:06)
[2019-10-22 05:20] LABS: Slide Review Slide Review Perform
[2019-10-22 05:21] LABS: Absolute Neutrophil 2.7 10^3/cmm (1.4-6.5); Absolute Segmented Neutrophil 0.9 10/cmm (1.6-7.1); Band Neutrophils Absolute 1.8 10^3/cmm (0.0-1.2); Eosinophils 2 %; Lymphocytes 10 %; Monocytes Absolute 0.9 10^3/cmm (0.1-0.6); Platelet Estimate Normal (Normal); Segmented Neutrophils 21 %; Total Cells Counted 100 (0-100)
[2019-10-22] MEDS: enoxaparin 100 mg/mL Syringe SUBCUT (05:31)
[2019-10-22] MEDS: enoxaparin 40 mg/0.4 mL Syringe SUBCUT (05:31)
[2019-10-22] MEDS: sodium chlor 0.45% +KCl 20 mEq 20 MEQ/1,000 ML BAG 100 MEQ IV ×2 (05:33→19:41)
--- NOTE | 2019-10-22 06:01 | XRR_ITS ---
PROCEDURE INFORMATION: Exam: XR Abdomen, 2 Views Exam date and time: 10/22/2019 9:26 AM Age: 74 years old Clinical indication: Abdominal pain; Generalized; Prior surgery; Patient HX: F/u S/P hemicolectomy. C/O abd pain. ; Additional info: Sbo S/P right hemicolectomy TECHNIQUE: Imaging protocol: XR of the abdomen. Views: 2 Views. COMPARISON: CR XR acute abdomen series [id number] 10/21/2019 8:28 AM FINDINGS: Tubes, catheters and devices: Termination of feeding tube in the antro duodenal region. Gastrointestinal tract: Marked small bowel dilatation and air-fluid levels, in a pattern suggesting small bowel obstruction. Organs: Bladder contrast. Vasculature: Subcentimeter pelvic calcifications, presumably vascular in etiology. Bones/joints: Degenerative change. XR/XR abdomen min 2V [id number] IMPRESSION: 1. Marked small bowel dilatation and air-fluid levels, in a pattern suggesting small bowel obstruction. 2. Termination of feeding tube in the antro duodenal region.
[2019-10-22 06:36] LABS: Glucose Point of Care 225 mg/dL (70-110)
[2019-10-22 07:37] VITALS: BP 124/72; PULSE 96; RESP 16; TEMP 37.1; O2SAT 91
[2019-10-22] MEDS: amiodarone 200 mg Tablet PO (09:44)
[2019-10-22] MEDS: sennosides-docusate Tablet 1 TAB PO ×2 (09:44→17:53)
[2019-10-22] MEDS: tamsulosin 0.4 mg Capsule PO (09:44)
[2019-10-22] MEDS: amlodipine 10 mg Tablet PO (09:45)
[2019-10-22] MEDS: metoprolol tartrate 25 mg Tablet PO ×2 (09:45→17:53)
[2019-10-22] MEDS: aspirin 81 mg EC Tablet PO (09:45)
[2019-10-22] MEDS: lactulose oral liq 20 gm/30 mL UDC 10 GM PO ×2 (09:58→22:50)
--- NOTE | 2019-10-22 10:17 | CTR_ITS ---
PROCEDURE INFORMATION: Exam: CT Abdomen And Pelvis Without Contrast Exam date and time: 10/22/2019 10:19 AM Age: 74 years old Clinical indication: Condition or disease; Intestinal condition; Obstruction; Prior surgery; Surgery date: 3-7 days post-operative; Patient HX: F/u S/P day 5 for hemicolectomy. 2.5 hour delay for oral contrast. ; Additional info: S/P right hemicolectomy pod 5 with ? sbo TECHNIQUE: Imaging protocol: Computed tomography of the abdomen and pelvis without contrast. Radiation optimization: All CT scans at this facility use at least one of these dose optimization techniques: automated exposure control; mA and/or kV adjustment per patient size (includes targeted exams where dose is matched to clinical indication); or iterative reconstruction. COMPARISON: CT abdomen pelvis w con* [id number] 10/12/2019 12:52 PM RADIATION DOSE METRICS: Total DLP (mGy-cm): 2036.47 FINDINGS: Detailed evaluation of the abdominal and pelvic viscera is somewhat limited in the absence of intravenous contrast. Tubes, catheters and devices: Termination of feeding tube in the proximal duodenum. Lungs: Interstitial prominence and chronic granulomatous disease. Coronary artery calcification. Extrapleural thickening. Liver: No focal hepatic mass. New Gallbladder and bile ducts: High attenuation bile in the gallbladder. Pancreas: No pancreatic mass or ductal dilatation. Spleen: No splenomegaly. Adrenals: Unremarkable adrenals. Kidneys and ureters: Normal renal morphology. Mild infiltration of perinephric fat. No hydronephrosis. Stomach and bowel: Marked small bowel dilatation extending to anastomotic site at the level of the mid transverse colon, without a focal transition zone. Status post partial colectomy with surgical resection of the right and proximal transverse colon. Left-sided colonic diverticula and diminution in caliber at the junction of the distal transverse colon and splenic flexure. Mild wall thickening in the nondistended stomach. Appendix: Status post appendectomy. Intraperitoneal space: No free fluid. Vasculature: Vascular calcification. Normal caliber of the abdominal aorta. Lymph nodes: No pathologically enlarged lymph nodes. Bladder: Decompressed bladder. Reproductive: Unremarkable as visualized. Bones/joints: Osteopenia and degenerative change. Ligamentous calcification. Soft tissues: Infiltration of subcutaneous fat in the anterior abdominal wall, along with subcutaneous emphysema. Calcification at the gluteal muscle attachment sites. CT/CT abdomen pelvis wo con [id number] IMPRESSION: 1. Marked small bowel dilatation extending to anastomotic site at the level of the mid transverse colon, without a focal transition zone. 2. Status post partial colectomy with surgical resection of the right and proximal transverse colon. Left-sided colonic diverticula and diminution in caliber at the junction of the distal transverse colon and splenic flexure. 3. Additional findings as described above. Radiation Dose CTDIVOL = (mGy): DLP = 2037.47 (mGy-cm)
--- NOTE | 2019-10-22 10:21 | P.PN_ITS ---
Subjective Subjective: Interval history: Patient had a small bowel movement today, no nausea or vomiting, NG output was around 500 cc overnight. No significant flatus, denies any abdominal pain Vitals/I&O/Wt Last Vital Signs Temp 98.7 F 10/22/19 07:37 Pulse 96 10/22/19 07:37 Resp 16 10/22/19 07:37 BP 124/72 10/22/19 07:37 Pulse Ox 91 10/22/19 07:37 10/21/19 10/22/19 10/22/19 22:59 06:59 14:59 Intake Total 1290 / 1380 Output Total 1175 / 2725 550 / 2725 1000 / 1000 Balance 115 / -1345 -550 / -1345 -1000 / -1000 Physical Exam Narrative: EXAM NARRATIVE: Abdomen: Soft, still distended the way softer than before. No guarding or rigidity. Incisions healing well NG tube to LIS Urinary Catheter Management^: F: Cath Placed During This Visit: yes, but has since been removed by the nurse Reason for Continuing Indwelling Catheter: Required Immobilization for Trauma or Surgery or Anesthesia Urinary Catheter Date of Insertion: 10/17/19 Urinary Catheter Time of Insertion: 12:00 Date Urinary Catheter Removed: 10/18/19 Time Urinary Catheter Discontinued: 10:39 Data : 10/22/19 04:10 10/22/19 04:10 A&P Assessment and plan (1) S/P right hemicolectomy: 74-year-old gentleman status post extended right hemicolectomy postop day 5 with postop ileus, Abdominal x-ray is concerning for small bowel obstruction, no significant improvement on abdominal x-ray compared to yesterday. Creatinine at 2.1 today: IV fluids to 100 cc/h NG tube to low intermittent suction Insulin sliding scale SCD for DVT prophylaxis Patient started on therapeutic Lovenox due to history of A. fib Protonix for GI prophylaxis Morphine and [place] for pain control Ambulate with physical therapy Appreciate input from hospitalist service I will obtain a CT abdomen pelvis with oral contrast to further evaluate the potential obstruction. Daily labs Patient will need continued inpatient stay to ensure resolution of obstruction/ileus Status: Acute Attestations Medical Necessity Statement*: Status post right hemicolectomy with small bowel distention concerning for obstruction Coding Level of Care Code Acute Fire Control Technician G for Chg Fwd Diagnoses S/P right hemicolectomy Z90.49
[2019-10-22] MEDS: iohexol 300 mg/mL 50 mL Btl PO (10:23)
--- NOTE | 2019-10-22 10:45 | PC.SOCIAL ---
IMM Updated Page 2 of IMM updated and given to patient. Initialed, dated, and timed and placed back in chart.
[2019-10-22] MEDS: ondansetron 2 mg/ML SDV 2 mL 4 MG IVP (11:06)
--- NOTE | 2019-10-22 11:12 | P.PN_ITS ---
Subjective Subjective: Interval history: He has a basin sitting in front of him, although says that that is just in case as he had received contrast for his CAT scan study. His abdomen is distended. Denies nausea or vomiting at this time. No discrete abdominal pain, but belly feels touchy all over. No flatus. He reports he wears nightly CPAP as he gets short of breath when he reclines in bed. Reports due to this is currently wearing nasal cannula. Vitals/I&O/Wt Last Vital Signs Temp 98.7 F 10/22/19 07:37 Pulse 96 10/22/19 07:37 Resp 16 10/22/19 07:37 BP 124/72 10/22/19 07:37 Pulse Ox 91 10/22/19 07:37 10/21/19 10/22/19 10/22/19 22:59 06:59 14:59 Intake Total 1290 / 1380 Output Total 1175 / 2175 550 / 2725 1000 / 1000 Balance 115 / -795 -550 / -1345 -1000 / -1000 Physical Exam 2 Const: COMMON NORMALS: no acute distress, patient oriented x3 and alert NUTRITIONAL APPEARANCE: obese ORIENTATION/CONSCIOUSNESS: Yes awake OTHER: Slightly hard of hearing. HENMT: COMMON NORMALS: oropharynx normal Neck/C-Spine: COMMON NORMALS: no JVD Resp: COMMON NORMALS: normal respiratory effort (Nasal cannula in place.) and clear to auscultation bilaterally AUSCULTATION: clear to auscultation bilaterally Cardio: COMMON NORMALS: no JVD, regular rhythm, S1 normal heart sound present, S2 normal heart sound present and No murmurs present (Cardio) RHYTHM: regular rhythm HEART SOUNDS: S1 normal heart sound present and S2 normal heart sound present GI: COMMON NORMALS: Normal to inspection, nondistended, normoactive bowel sounds present and non-tender INSPECTION: Yes abdominal distension AUSCULTATION: Yes Hypoactive bowel sounds present OTHER: Healing wound mid abdomen, trocar sites. Extremity: COMMON NORMALS: no joint enlargement and no pedal edema Neuro: COMMON NORMALS: patient oriented x3 and moves all extremities SENSORIUM/ORIENTATION: Yes alert Skin: COMMON NORMALS: no rashes or lesions noted GENERAL SKIN EXAM: no rashes or lesions noted Urinary Catheter Management^: F: Cath Placed During This Visit: yes, but has since been removed by the nurse Reason for Continuing Indwelling Catheter: Required Immobilization for Trauma or Surgery or Anesthesia Urinary Catheter Date of Insertion: 10/17/19 Urinary Catheter Time of Insertion: 12:00 Date Urinary Catheter Removed: 10/18/19 Time Urinary Catheter Discontinued: 10:39 Data : 10/22/19 04:10 10/22/19 04:10 A&P Assessment and plan (1) Malignant neoplasm of colon: Concern for small bowel obstruction noted on x-ray. Abdomen is distended. Hypoactive bowel sounds. No flatus. Some persistent NG output. Continue LIS. Reviewed surgery note. Plan for additional assessment by CT abdomen pelvis with oral contrast. He so far has tolerated contrast, pending imaging study. Status post right hemicolectomy with end-to-end anastomosis 10/16. Continue to mobilize. Status: Acute Qualifiers: Colon location: ascending Qualified Code(s): C18.2 - Malignant neoplasm of ascending colon (2) ASHD (arteriosclerotic heart disease): Currently no symptoms of chest pain. 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 Last stenting done in 2017 per patient. Continue aspirin, Continue metoprolol 25 mg p.o. twice daily. Expected to be prolonged n.p.o. - beta-blockers IV. Status: Acute (3) Diabetes: Glucose somewhat elevated in 200s. Continue 15 units of Lantus and sliding scale insulin. We will not increase for now as he is NPO. Continue to monitor. 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 CPAP to continue at nighttime. Status: Acute Qualifiers: Heart failure chronicity: chronic Heart failure type: diastolic Qualified Code(s): I50.32 - Chronic diastolic (congestive) heart failure (5) BMI 45.0-49.9, adult: Continue CPAP for sleep apnea Status: Acute (6) Sleep apnea: Is on CPAP machine from home. Status: Acute Qualifiers: Sleep apnea type: obstructive Qualified Code(s): G47.33 - Obstructive sleep apnea (adult) (pediatric) (7) Afib: Heart rate currently well controlled Continue metoprolol IV. Continue amiodarone Continue to hold warfarin for now, currently on therapeutic dose of Lovenox which is renally dosed 24-hour dosing for creatinine clearance of 40. Not raised to every 12 hours dosing given recent surgery and now partial SBO. Coordinate with surgery regarding reinitiaon of warfarin Status: Acute Qualifiers: Atrial fibrillation type: paroxysmal Qualified Code(s): I48.0 - Paroxysmal atrial fibrillation (8) Hypertension: Currently at goal after increased amlodipine dose to 10 mg p.o. daily. Hydralazine IV as needed. Status: Acute (9) CKD (chronic kidney disease): CKD versus KRISTIE on CKD, creatinine up to 2.1, although baseline appears to be around 1.6-1.9. Follow-up CT abdomen pelvis to exclude hydronephrosis. Avoid nephrotoxins. Currently receiving IV hydration given continued NGT output. Status: Acute Attestations Medical Necessity Statement*: Continue admission for assessment and management of possible bowel obstruction. Coding Level of Care Code Acute Office Machine Inspector for Chg Fwd Exam Comprehensive Diagnoses Malignant neoplasm of colon C18.2 Colon location: ascending ASHD (arteriosclerotic heart disease) I25.10 Diabetes E11.59; Z79.4 Diabetes mellitus complication detail: with other circulatory complications Diabetes mellitus complication status: with circulatory complication Diabetes mellitus superintendent container terminal insulin use: with superintendent container terminal use Diabetes mellitus type: type 2 CHF (congestive heart failure) I50.32 Heart failure chronicity: chronic Heart failure type: diastolic BMI 45.0-49.9, adult Z68.42 Sleep apnea G47.33 Sleep apnea type: obstructive Afib I48.0 Atrial fibrillation type: paroxysmal Hypertension I10 CKD (chronic kidney disease) N18.9
[2019-10-22 11:16] LABS: Glucose Point of Care 285 mg/dL (70-110)
[2019-10-22 11:32] VITALS: BP 120/70; PULSE 83; RESP 18; TEMP 36.4; O2SAT 98
[2019-10-22 15:30] VITALS: BP 118/51; PULSE 91; RESP 17; TEMP 36.7; O2SAT 95
[2019-10-22] MEDS: magnesium citrate Btl 296 mL 148 ML PO (15:39)
[2019-10-22 17:19] LABS: Glucose Point of Care 150 mg/dL (70-110)
[2019-10-22 19:52] VITALS: BP 146/84; PULSE 88; RESP 18; TEMP 36.7; O2SAT 98
[2019-10-22 20:24] LABS: Glucose Point of Care 158 mg/dL (70-110)
[2019-10-22] MEDS: insulin glargine 100 units/1 mL 15 UNIT SUBCUT (20:53)
[2019-10-23] VITALS (9 sets, daily range): BP systolic 120–165; BP diastolic 72–84; PULSE 68–94; RESP 18–20; TEMP 36.1–36.8; O2SAT 90–98
[2019-10-23 02:59] LABS: Basophils % 0.8 %; Eosinophils # 0.1 10^3/uL (0.0-0.8); Eosinophils % 1.2 %; Hematocrit 43.3 % (42.0-52.0); Hemoglobin 13.1 g/dL (11.7-16.6); Lymphocytes # 0.5 10^3/uL (0.8-4.8); Lymphocytes % 9.3 %; Mean Corpuscular HGB Conc 30.3 g/dL (30.0-36.0); Mean Corpuscular Hemoglobin 27.6 pg (28.0-34.0); Mean Corpuscular Volume 91.4 fL (80-94); Mean Platelet Volume 10.9 fL (7.4-10.4); Monocytes # 1.1 10^3/uL (0.2-0.9); Monocytes % 21.5 %; Neutrophils # 3.45 10^3/uL (1.8-7.7); Neutrophils % 66.6 %; Nucleated Red Blood Cells % 0 %; Platelet Count 281 10^3/cmm (130-400); Red Blood Count 4.74 10^6/uL (4.1-5.3); Red Cell Distribution Width 15.7 % (12.1-15.1); White Blood Count 5.2 10^3/uL (4.0-10.0)
[2019-10-23 03:23] LABS: Blood Urea Nitrogen 27 mg/dL (8-23); Carbon Dioxide 29 mmol/L (22-29); Chloride 98 mmol/L (98-107); Glucose 229 mg/dL (65-115); Osmolality Calculated 292 mOsm/kg (285-295); Sodium 139 mmol/L (136-145)
[2019-10-23] MEDS: famotidine 20 mg/2 mL INJ IVP ×2 (03:27→14:53)
[2019-10-23] MEDS: enoxaparin 100 mg/mL Syringe SUBCUT (04:18)
[2019-10-23] MEDS: enoxaparin 40 mg/0.4 mL Syringe SUBCUT (04:19)
[2019-10-23] MEDS: sodium chlor 0.45% +KCl 20 mEq 20 MEQ/1,000 ML BAG 100 MEQ IV ×2 (05:27→17:39)
--- NOTE | 2019-10-23 06:11 | PC.NURSE ---
Shift Summary Pt had discomfort with sore throat and drainage from his NG tube. Pt has had out 1,010mL dark greenish output from NG tube. pt has not c/o other pain relating to his abdomen. he did have some nausea early in the shift while he was still clamped from previous shift, pt had relief once NG tube was hooked back to suction. pt had very hypoactive bowel sounds tonight.
[2019-10-23 06:37] LABS: Glucose Point of Care 225 mg/dL (70-110)
--- NOTE | 2019-10-23 06:55 | XR_ITS ---
WS: [id number] ABDOMEN SERIES Supine and upright views of the abdomen CLINICAL INFORMATION: distension s/p right hemicolectomy COMPARISON: None. FINDINGS: No free air on the upright view. Status post subtotal colectomy with resection of the right ascending and proximal transverse colon.Air-fluid levels in the upright view similar to previous. Persistent f indings of partial bowel obstruction with air distended loops of small and large bowel. XR/XR abdomen min 2V [id number] IMPRESSION: 1. Persistent findings of partial small bowel obstruction with air-fluid level s in the upright view not significantly changed. 2. Enteric tube with tip in distal stomach.
[2019-10-23] MEDS: metoprolol tartrate 25 mg Tablet PO ×2 (08:31→17:39)
[2019-10-23] MEDS: aspirin 81 mg EC Tablet PO (08:31)
[2019-10-23] MEDS: sennosides-docusate Tablet 1 TAB PO ×2 (08:31→17:39)
[2019-10-23] MEDS: tamsulosin 0.4 mg Capsule PO (08:32)
[2019-10-23] MEDS: amlodipine 10 mg Tablet PO (08:32)
[2019-10-23] MEDS: amiodarone 200 mg Tablet PO (08:32)
[2019-10-23] MEDS: lactulose oral liq 20 gm/30 mL UDC 10 GM PO ×2 (09:19→22:18)
--- NOTE | 2019-10-23 11:01 | PM.PN ---
Subjective Subjective: Interval history: Currently he is feeling okay. No abdominal pain. Has had no vomiting. Abdomen is still distended, still no flatus. Vitals/I&O/Wt Last Vital Signs Temp 97.6 F 10/23/19 08:00 Pulse 83 10/23/19 08:00 Resp 18 10/23/19 08:00 BP 144/81 10/23/19 08:00 Pulse Ox 90 10/23/19 08:00 10/22/19 10/23/19 10/23/19 22:59 06:59 14:59 Intake Total 1000 / 1000 976.667 / 1976.667 Output Total 500 / 1775 1010 / 2785 Balance 500 / -775 -33.333 / -808.333 Physical Exam Const: COMMON NORMALS: no acute distress, patient oriented x3 and alert NUTRITIONAL APPEARANCE: obese ORIENTATION/CONSCIOUSNESS: Yes awake OTHER: Slightly hard of hearing. HENMT: COMMON NORMALS: oropharynx normal Neck/C-Spine: COMMON NORMALS: no JVD Resp: COMMON NORMALS: normal respiratory effort (Nasal cannula in place.) and clear to auscultation bilaterally AUSCULTATION: clear to auscultation bilaterally Cardio: COMMON NORMALS: no JVD, regular rhythm, S1 normal heart sound present, S2 normal heart sound present and No murmurs present (Cardio) RHYTHM: regular rhythm HEART SOUNDS: S1 normal heart sound present and S2 normal heart sound present GI: COMMON NORMALS: Normal to inspection, nondistended, normoactive bowel sounds present and non-tender INSPECTION: Yes abdominal distension AUSCULTATION: Yes Hypoactive bowel sounds present OTHER: Healing wound mid abdomen, trocar sites. Extremity: COMMON NORMALS: no joint enlargement and no pedal edema Neuro: COMMON NORMALS: patient oriented x3 and moves all extremities SENSORIUM/ORIENTATION: Yes alert Skin: COMMON NORMALS: no rashes or lesions noted GENERAL SKIN EXAM: no rashes or lesions noted Urinary Catheter Management^: F: Cath Placed During This Visit: yes, but has since been removed by the nurse Reason for Continuing Indwelling Catheter: Required Immobilization for Trauma or Surgery or Anesthesia Urinary Catheter Date of Insertion: 10/17/19 Urinary Catheter Time of Insertion: 12:00 Date Urinary Catheter Removed: 10/18/19 Time Urinary Catheter Discontinued: 10:39 Data : 10/23/19 02:42 10/23/19 02:42 A&P Assessment and plan (1) Malignant neoplasm of colon: Versus involve traction. Stable putting out large amount from NG tube since yesterday. Distention of small bowel without definitive transition point, appears to extend over to the anastomotic area. Continue management per surgery at this time. Continue NGT to LIS. Status post right hemicolectomy with end-to-end anastomosis 10/16. Continue to mobilize. Status: Acute Qualifiers: Colon location: ascending Qualified Code(s): C18.2 - Malignant neoplasm of ascending colon (2) ASHD (arteriosclerotic heart disease): Currently no symptoms of chest pain. 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 Last stenting done in 2017 per patient. Continue aspirin, Continue metoprolol 25 mg p.o. twice daily. Expected to be prolonged n.p.o. - beta-blockers IV. Status: Acute (3) Diabetes: Glucose somewhat elevated in 200s. Continue 15 units of Lantus and sliding scale insulin. We will not increase for now as he is NPO. Continue to monitor. 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 CPAP to continue at nighttime. Status: Acute Qualifiers: Heart failure chronicity: chronic Heart failure type: diastolic Qualified Code(s): I50.32 - Chronic diastolic (congestive) heart failure (5) BMI 45.0-49.9, adult: Continue CPAP for sleep apnea Status: Acute (6) Sleep apnea: Is on CPAP machine from home. Status: Acute Qualifiers: Sleep apnea type: obstructive Qualified Code(s): G47.33 - Obstructive sleep apnea (adult) (pediatric) (7) Afib: Heart rate currently well controlled Continue metoprolol IV. Continue amiodarone Continue to hold warfarin for now, currently on therapeutic dose of Lovenox which is renally dosed 24-hour dosing for creatinine clearance of 40. Not raised to every 12 hours dosing given recent surgery and now partial SBO. Coordinate with surgery regarding reinitiaon of warfarin Status: Acute Qualifiers: Atrial fibrillation type: paroxysmal Qualified Code(s): I48.0 - Paroxysmal atrial fibrillation (8) Hypertension: Currently at goal after increased amlodipine dose to 10 mg p.o. daily. Hydralazine IV as needed. Status: Acute (9) CKD (chronic kidney disease): CKD versus KRISTIE on CKD, creatinine up to 2.1, although baseline appears to be around 1.6-1.9. No hydronephrosis on abdomen pelvis CT. Avoid nephrotoxins. Currently receiving IV hydration given continued NGT output. Status: Acute Attestations Medical Necessity Statement*: Continue admission for assessment management of bowel obstruction. Coding Level of Care Code Acute Event Sales Representative for Chg Fwd Exam Comprehensive Diagnoses Malignant neoplasm of colon C18.2 Colon location: ascending ASHD (arteriosclerotic heart disease) I25.10 Diabetes E11.59; Z79.4 Diabetes mellitus complication detail: with other circulatory complications Diabetes mellitus complication status: with circulatory complication Diabetes mellitus senior care insulin use: with terminal block assembler use Diabetes mellitus type: type 2 CHF (congestive heart failure) I50.32 Heart failure chronicity: chronic Heart failure type: diastolic BMI 45.0-49.9, adult Z68.42 Sleep apnea G47.33 Sleep apnea type: obstructive Afib I48.0 Atrial fibrillation type: paroxysmal Hypertension I10 CKD (chronic kidney disease) N18.9
[2019-10-23 11:21] LABS: Glucose Point of Care 201 mg/dL (70-110)
--- NOTE | 2019-10-23 11:30 | FL_ITS ---
WS: [id number] INDICATION: Right hemicolectomy. TECHNIQUE: Single contrast Gastrografin enema. FINDINGS: Recent postoperative changes right hemicolectomy with anastomosis. Normal filling of the si gmoid colon. A few diverticuli. Normal filling of the left descending colon and splenic flexure. Cont rast rapidly traverses the splenic flexure and distal transverse colon. No evidence of obstructing st ricture or mass. Normal-appearing postoperative anastomosis with no obstruction of contrast. Mild exp ected postoperative edema with mild narrowing. Contrast rapidly traverses the anastomosis. No evidenc e of contrast leak. Enteric tube with tip in the stomach. FL/FL enema w gastrografin [id number] IMPRESSION: No evidence of colonic stricture or obstruction. Contrast rapidly t raverses the splenic fracture and transverse colon, as well as the anastomosis
--- NOTE | 2019-10-23 11:31 | P.PN_ITS ---
Subjective Subjective: Interval history: Patient passing flatus, no BM, had significant NG output yesterday. CT abdomen pelvis showed contrast going through the anastomosis with no evidence of obstruction in the small bowel or the anastomosis. Discussed the CT findings with the radiologist today Vitals/I&O/Wt Last Vital Signs Temp 97.6 F 10/23/19 08:00 Pulse 83 10/23/19 08:00 Resp 18 10/23/19 08:00 BP 144/81 10/23/19 08:00 Pulse Ox 90 10/23/19 08:00 10/22/19 10/23/19 10/23/19 22:59 06:59 14:59 Intake Total 1000 / 1975.667 976.667 / 1975.667 Output Total 500 / 2785 1010 / 2785 Balance 500 / -808.333 -33.333 / -808.333 Physical Exam Narrative: EXAM NARRATIVE: Abdomen: Soft, nontender, distended, incision clean dry and intact Urinary Catheter Management^: F: Cath Placed During This Visit: yes, but has since been removed by the nurse Reason for Continuing Indwelling Catheter: Required Immobilization for Trauma or Surgery or Anesthesia Urinary Catheter Date of Insertion: 10/17/19 Urinary Catheter Time of Insertion: 12:00 Date Urinary Catheter Removed: 10/18/19 Time Urinary Catheter Discontinued: 10:39 Data : 10/24/19 02:20 10/24/19 02:20 A&P Assessment and plan (1) S/P right hemicolectomy: 74-year-old gentleman status post extended right hemicolectomy postop day 5 with postop ileus, Abdominal x-ray is concerning for small bowel obstruction, no significant improvement on abdominal x-ray compared to yesterday. Creatinine at 2.1 today: IV fluids to 100 cc/h NG tube to low intermittent suction Insulin sliding scale SCD for DVT prophylaxis Patient started on therapeutic Lovenox due to history of A. fib Protonix for GI prophylaxis DC opioid pain medications Ambulate with physical therapy Appreciate input from hospitalist service CT abdomen pelvis did not any obvious signs of obvious obstruction or anastomotic leak, will obtain a Gastrografin enema today Start Reglan 10 mg IV 3 times daily Daily labs Patient will need continued inpatient stay to ensure resolution of obstruction/ileus Status: Acute Attestations Medical Necessity Statement*: Postop ileus, rule out obstruction status post right hemicolectomy Coding Level of Care Code Acute Senior Statistician for Chg Fwd Diagnoses S/P right hemicolectomy Z90.49
[2019-10-23] MEDS: diatrizoate meglumine 120 mL Sol PR ×2 (13:57→13:59)
[2019-10-23 17:08] LABS: Glucose Point of Care 150 mg/dL (70-110)
[2019-10-23] MEDS: phenol oral Spray 177 mL 3 SPRAY MUCOUS MEM (17:34)
[2019-10-23 21:35] LABS: Glucose Point of Care 163 mg/dL (70-110)
[2019-10-23] MEDS: metoclopramide 5 mg/mL SDV 2 mL 10 MG IVP (22:18)
[2019-10-23] MEDS: insulin glargine 100 units/1 mL 15 UNIT SUBCUT (22:18)
[2019-10-23 22:30] LABS: Glucose Point of Care 157 mg/dL (70-110)
[2019-10-23] MEDS: ipratropium-albuterol 3 mL Neb INHALATION (23:24)
[2019-10-24] VITALS (7 sets, daily range): BP systolic 147–166; BP diastolic 76–89; PULSE 86–118; RESP 18–24; TEMP 36.8–37.2; O2SAT 90–98
[2019-10-24 02:48] LABS: Basophils # 0.1 10^3/uL (0.0-0.1); Basophils % 0.7 %; Eosinophils % 0.1 %; Hematocrit 44.2 % (42.0-52.0); Hemoglobin 13.3 g/dL (11.7-16.6); Lymphocytes # 0.4 10^3/uL (0.8-4.8); Mean Corpuscular HGB Conc 30.1 g/dL (30.0-36.0); Mean Corpuscular Hemoglobin 27.8 pg (28.0-34.0); Mean Corpuscular Volume 92.3 fL (80-94); Mean Platelet Volume 10.9 fL (7.4-10.4); Monocytes # 1.3 10^3/uL (0.2-0.9); Monocytes % 19.3 %; Neutrophils # 5.11 10^3/uL (1.8-7.7); Neutrophils % 73.7 %; Nucleated Red Blood Cells % 0 %; Platelet Count 285 10^3/cmm (130-400); Red Blood Count 4.79 10^6/uL (4.1-5.3); Red Cell Distribution Width 15.9 % (12.1-15.1); White Blood Count 6.9 10^3/uL (4.0-10.0)
[2019-10-24 03:16] LABS: Alanine Aminotransferase 27 U/L (0-41); Albumin Level 3.3 g/dL (3.5-5.2); Alkaline Phosphatase 91 IU/L (40-130); Anion Gap 18.9 (5-19); Aspartate Amino Transferase 30 U/L (0-40); Blood Urea Nitrogen 26 mg/dL (8-23); Carbon Dioxide 25 mmol/L (22-29); Chloride 99 mmol/L (98-107); Globulin 4.1 g/dL (1.3-4.6); Glucose 196 mg/dL (65-115); Osmolality Calculated 290 mOsm/kg (285-295); Potassium 3.9 mmol/L (3.5-5.1); Sodium 139 mmol/L (136-145); Total Bilirubin 0.6 mg/dL (0.15-1.2); Total Protein 7.4 g/dL (6.6-8.7)
[2019-10-24] MEDS: famotidine 20 mg/2 mL INJ IVP ×2 (04:06→15:41)
[2019-10-24] MEDS: metoclopramide 5 mg/mL SDV 2 mL 10 MG IVP ×3 (05:50→21:31)
[2019-10-24] MEDS: enoxaparin 100 mg/mL Syringe SUBCUT (05:50)
[2019-10-24] MEDS: enoxaparin 40 mg/0.4 mL Syringe SUBCUT (05:50)
[2019-10-24 07:00] LABS: Glucose Point of Care 177 mg/dL (70-110)
[2019-10-24] MEDS: sennosides-docusate Tablet 1 TAB PO ×2 (08:52→17:32)
[2019-10-24] MEDS: aspirin 81 mg EC Tablet PO (08:53)
[2019-10-24] MEDS: amlodipine 10 mg Tablet PO (08:53)
[2019-10-24] MEDS: tamsulosin 0.4 mg Capsule PO (08:53)
[2019-10-24] MEDS: amiodarone 200 mg Tablet PO (08:53)
[2019-10-24] MEDS: metoprolol tartrate 25 mg Tablet PO ×2 (08:53→17:32)
--- NOTE | 2019-10-24 09:15 | PC.SOCIAL ---
IMM Updated Page 2 of IMM updated and given to patient. Initialed, dated, and timed and placed back in chart.
--- NOTE | 2019-10-24 10:39 | PM.PN ---
Subjective Subjective: Interval history: Patient had a barium enema yesterday which showed no evidence of obstruction in the colon or at the anastomosis. No flatus or BM. Vitals/I&O/Wt Last Vital Signs Temp 98.2 F 10/24/19 07:46 Pulse 86 10/24/19 07:46 Resp 20 H 10/24/19 07:46 BP 157/81 10/24/19 07:46 Pulse Ox 93 10/24/19 07:46 10/23/19 10/24/19 10/24/19 22:59 06:59 14:59 Intake Total 1000 / 1250 250 / 1250 Output Total 125 / 1525 1200 / 1525 Balance 875 / -275 -950 / -275 Physical Exam Narrative: EXAM NARRATIVE: Abdomen: Soft, nontender, distended, incision clean dry and intact Urinary Catheter Management^: F: Cath Placed During This Visit: yes, but has since been removed by the nurse Reason for Continuing Indwelling Catheter: Required Immobilization for Trauma or Surgery or Anesthesia Urinary Catheter Date of Insertion: 10/17/19 Urinary Catheter Time of Insertion: 12:00 Date Urinary Catheter Removed: 10/18/19 Time Urinary Catheter Discontinued: 10:39 Data : 10/24/19 02:20 10/24/19 02:20 A&P Assessment and plan (1) S/P right hemicolectomy: 74-year-old gentleman status post extended right hemicolectomy with postop ileus, not resolving CT abdomen pelvis: No evidence of obstruction Gastrografin enema, no evidence of obstruction or anastomotic leak We will start TPN today after PICC line is placed, total fluids 800 cc/h NG tube to low intermittent suction Insulin sliding scale SCD for DVT prophylaxis Patient started on therapeutic Lovenox due to history of A. fib Protonix for GI prophylaxis Ambulate with physical therapy Appreciate input from hospitalist service Reglan 10 mg IV 3 times daily Milk of molasses and soapsuds enema today Daily labs Patient will need continued inpatient stay to ensure resolution of obstruction/ileus Status: Acute Attestations Medical Necessity Statement*: Postoperative status post right hemicolectomy, no evidence of obstruction requiring continued inpatient stay to ensure resolution Coding Level of Care Code Acute Wrapper Stemmer Hand for Chg Fwd Diagnoses S/P right hemicolectomy Z90.49
--- NOTE | 2019-10-24 11:05 | XR_ITS ---
WS: [id number] PORTABLE CHEST HISTORY: PICC placement COMPARISON: 10/18/2019 Left-sided PICC line is been placed with tip terminating in the mid SVC. Mild pulmonary congestion. No lobar collapse or pneumothorax. No pleural effusion or pneumothorax. Cardiac size: Mildly enlarged cardiac silhouette. Mediastinum/Aorta: Normal mediastinum. No osseous abnormality seen. XR/XR chest 1V portable [id number] IMPRESSION: Left-sided PICC line terminates in the mid SVC.
[2019-10-24 11:14] LABS: Glucose Point of Care 193 mg/dL (70-110)
[2019-10-24] MEDS: lactulose oral liq 20 gm/30 mL UDC 10 GM PO ×2 (11:33→21:37)
[2019-10-24] MEDS: sodium chlor 0.45% +KCl 20 mEq 20 MEQ/1,000 ML BAG 100 MEQ IV ×2 (11:35→15:43)
--- NOTE | 2019-10-24 11:59 | P.PN_ITS ---
Subjective Subjective: Interval history: At this time nursing staff is working on unclogging his NG tube. He denies current pain. Says that he did have a small bowel movement earlier, although still not passing any flatus. Abdomen still distended. Does say that breathing is comfortable, however. Vitals/I&O/Wt Last Vital Signs Temp 98.2 F 10/24/19 07:46 Pulse 86 10/24/19 07:46 Resp 20 H 10/24/19 07:46 BP 157/81 10/24/19 07:46 Pulse Ox 93 10/24/19 07:46 10/23/19 10/24/19 10/24/19 22:59 06:59 14:59 Intake Total 1000 / 1000 1250 / 2250 Output Total 125 / 325 1200 / 1525 Balance 875 / 675 50 / 725 Physical Exam Const: COMMON NORMALS: no acute distress, patient oriented x3 and alert NUTRITIONAL APPEARANCE: obese ORIENTATION/CONSCIOUSNESS: Yes awake OTHER: Slightly hard of hearing. HENMT: COMMON NORMALS: oropharynx normal OTHER: NG tube in place. Not currently on oxygen. Neck/C-Spine: COMMON NORMALS: no JVD Resp: COMMON NORMALS: normal respiratory effort (Nasal cannula in place.) and clear to auscultation bilaterally AUSCULTATION: clear to auscultation bilaterally Cardio: COMMON NORMALS: no JVD, regular rhythm, S1 normal heart sound present, S2 normal heart sound present and No murmurs present (Cardio) RHYTHM: regular rhythm HEART SOUNDS: S1 normal heart sound present and S2 normal heart sound present GI: COMMON NORMALS: Normal to inspection, nondistended, normoactive bowel sounds present and non-tender INSPECTION: Yes abdominal distension AUSCULTATION: Yes Hypoactive bowel sounds present OTHER: Healing wound mid abdomen, trocar sites. Extremity: COMMON NORMALS: no joint enlargement and no pedal edema Neuro: COMMON NORMALS: patient oriented x3 and moves all extremities SENSORIUM/ORIENTATION: Yes alert Skin: COMMON NORMALS: no rashes or lesions noted GENERAL SKIN EXAM: no rashes or lesions noted Urinary Catheter Management^: F: Cath Placed During This Visit: yes, but has since been removed by the nurse Reason for Continuing Indwelling Catheter: Required Immobilization for Trauma or Surgery or Anesthesia Urinary Catheter Date of Insertion: 10/17/19 Urinary Catheter Time of Insertion: 12:00 Date Urinary Catheter Removed: 10/18/19 Time Urinary Catheter Discontinued: 10:39 Data : 10/24/19 02:20 10/24/19 02:20 A&P Assessment and plan (1) Malignant neoplasm of colon: Versus involve traction. Stable putting out large amount from NG tube since yesterday. Distention of small bowel without definitive transition point, appears to extend over to the anastomotic area. Continue management per surgery at this time. Continue NGT to LIS. Status post right hemicolectomy with end-to-end anastomosis 10/16. Continue to mobilize. Status: Acute Qualifiers: Colon location: ascending Qualified Code(s): C18.2 - Malignant neoplasm of ascending colon (2) ASHD (arteriosclerotic heart disease): Currently no symptoms of chest pain. 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 Last stenting done in 2017 per patient. Continue aspirin, Continue metoprolol 25 mg p.o. twice daily. Expected to be prolonged n.p.o. - beta-blockers IV. Status: Acute (3) Diabetes: Glucose somewhat elevated in 200s. Continue 15 units of Lantus and sliding scale insulin. We will not increase for now as he is NPO. Continue to monitor. Status: Acute Qualifiers: Diabetes mellitus complication detail: with other circulatory complications Diabetes mellitus complication status: with circulatory complication Diabetes mellitus detention insulin use: with detention use Diabetes mellitus type: type 2 Qualified Code(s): E11.59 - Type 2 diabetes mellitus with other circulatory complications; Z79.4 - [facility] (current) use of insulin (4) CHF (congestive heart failure): Hold Bumex for today getting IV fluids at 100 cc/h for NGT output. CPAP to continue at nighttime. Status: Acute Qualifiers: Heart failure chronicity: chronic Heart failure type: diastolic Qualified Code(s): I50.32 - Chronic diastolic (congestive) heart failure (5) BMI 45.0-49.9, adult: Continue CPAP for sleep apnea Status: Acute (6) Sleep apnea: Is on CPAP machine from home. Status: Acute Qualifiers: Sleep apnea type: obstructive Qualified Code(s): G47.33 - Obstructive sleep apnea (adult) (pediatric) (7) Afib: Heart rate currently well controlled Continue metoprolol IV. Continue amiodarone Continue to hold warfarin for now, currently on therapeutic dose of Lovenox which is renally dosed 24-hour dosing for creatinine clearance of 40. Not raised to every 12 hours dosing given recent surgery and now partial SBO. Coordinate with surgery regarding reinitiaon of warfarin Status: Acute Qualifiers: Atrial fibrillation type: paroxysmal Qualified Code(s): I48.0 - Paroxysmal atrial fibrillation (8) Hypertension: Currently at goal after increased amlodipine dose to 10 mg p.o. daily. Hydralazine IV as needed. Status: Acute (9) CKD (chronic kidney disease): CKD versus KRISTIE on CKD, creatinine with mild improvement. Now appears to be at baseline. No hydronephrosis on abdomen pelvis CT. Avoid nephrotoxins. Currently receiving IV hydration given continued NGT output. Overnight IV fluid rate was decreased to 75 mL/h. Continue to monitor MARYSOL. Has been on IV fluid given continued output from NG. Monitor respiration. Currently says breathing comfortably while on room air. Status: Acute Attestations Medical Necessity Statement*: Continue admission for assessment management of postoperative ileus versus bowel obstruction. Coding Level of Care Code Acute Rd Mechanical Engineer for Chg Fwd Exam Comprehensive Diagnoses Malignant neoplasm of colon C18.2 Colon location: ascending ASHD (arteriosclerotic heart disease) I25.10 Diabetes E11.59; Z79.4 Diabetes mellitus complication detail: with other circulatory compli cations Diabetes mellitus complication status: with circulatory complication Diabetes mellitus long term care administrator insulin use: with detention use Diabetes mellitus type: type 2 CHF (congestive heart failure) I50.32 Heart failure chronicity: chronic Heart failure type: diastolic BMI 45.0-49.9, adult Z68.42 Sleep apnea G47.33 Sleep apnea type: obstructive Afib I48.0 Atrial fibrillation type: paroxysmal Hypertension I10 CKD (chronic kidney disease) N18.9
[2019-10-24] MEDS: AA-Dex 5%-20% w/Lytes 1,000 ML with multivitamin inj 5 ML 83 ML IV (15:42)
[2019-10-24 16:48] LABS: Glucose Point of Care 256 mg/dL (70-110)
--- NOTE | 2019-10-24 18:28 | PC.NURSE ---
END OF SHIFT SUMMARY pt not able to swallow morning PO meds. pt states it is because of the NG tube. NG tube would not flush after irrigating with water and Dr. Jaquan washburn ordered for it to be removed. pt has since had 2 soap rubén enemas, both had return with watery, greenish-brown BM. pt able to take evening PO meds well. pt has not had any pain during the shift. PICC line was placed today and site has been asymptomatic. pt started on TPN at 1600 and has been tolerating well.
--- NOTE | 2019-10-24 20:51 | PC.NURSE ---
at assessment pt content. No distress with breathing, no nausea. Pt without NG tube. Will monitor.
[2019-10-24] MEDS: ipratropium-albuterol 3 mL Neb INHALATION (21:17)
[2019-10-24] MEDS: insulin glargine 100 units/1 mL 15 UNIT SUBCUT (21:37)
[2019-10-24 21:55] LABS: Glucose Point of Care 312 mg/dL (70-110)
[2019-10-25] VITALS (11 sets, daily range): BP systolic 132–168; BP diastolic 66–93; PULSE 88–118; RESP 16–28; TEMP 36.4–37.2; O2SAT 91–98
--- NOTE | 2019-10-25 00:10 | PC.NURSE ---
dr ortez contacted about pt not having NG tube back in, he stated he told day shift that it was to be put back in after the NG clog but it wasnt done, and i did not recieve that in report. Jaquan stated the patient could have a break, but needed it put back in if distention and nausea was to occur. Which it since has, and NG tube will be placed JOHN. Otherwise patient has no complains and is resting well with with CPAP on.
[2019-10-25] MEDS: morphine 4 mg/mL SDV 1 mL 2 MG IVP (02:04)
[2019-10-25] MEDS: LORazepam 2 mg/mL INJ 1 mL IVP (02:05)
[2019-10-25] MEDS: enoxaparin 100 mg/mL Syringe SUBCUT (04:14)
[2019-10-25] MEDS: enoxaparin 40 mg/0.4 mL Syringe SUBCUT (04:16)
[2019-10-25] MEDS: famotidine 20 mg/2 mL INJ IVP ×2 (04:17→16:06)
[2019-10-25] MEDS: AA-Dex 5%-20% w/Lytes 1,000 ML with multivitamin inj 5 ML 83 ML IV ×2 (04:54→16:44)
[2019-10-25] MEDS: metoclopramide 5 mg/mL SDV 2 mL 10 MG IVP ×3 (05:02→22:13)
[2019-10-25 06:01] LABS: Basophils # 0.1 10^3/uL (0.0-0.1); Basophils % 0.6 %; Eosinophils % 0.4 %; Hematocrit 42.3 % (42.0-52.0); Hemoglobin 13.1 g/dL (11.7-16.6); Lymphocytes # 0.5 10^3/uL (0.8-4.8); Mean Corpuscular Hemoglobin 28.1 pg (28.0-34.0); Mean Corpuscular Volume 90.6 fL (80-94); Mean Platelet Volume 12.8 fL (7.4-10.4); Monocytes # 1.4 10^3/uL (0.2-0.9); Monocytes % 17.3 %; Neutrophils % 74.1 %; Nucleated Red Blood Cells % 0 %; Platelet Count 233 10^3/cmm (130-400); Red Blood Count 4.67 10^6/uL (4.1-5.3); Red Cell Distribution Width 16.4 % (12.1-15.1); White Blood Count 8.1 10^3/uL (4.0-10.0)
--- NOTE | 2019-10-25 06:46 | PC.NURSE ---
notified Dr Partida or unsuccessful NGT insertion with attempts by 3 nurses, 16french NGT inserted to right nare by Dr Partida and placed to LIS
[2019-10-25 06:55] LABS: Glucose Point of Care 375 mg/dL (70-110)
[2019-10-25 07:36] LABS: Blood Urea Nitrogen 24 mg/dL (8-23); Calcium 8.4 mg/dL (8.5-10.5); Carbon Dioxide 27 mmol/L (22-29); Chloride 99 mmol/L (98-107); Glucose 447 mg/dL (65-115); Osmolality Calculated 298 mOsm/kg (285-295); Sodium 136 mmol/L (136-145)
--- NOTE | 2019-10-25 08:23 | XR_ITS ---
WS: [id number] Abdomen series, Flat and upright 10/25/2019 Clinical Data: sbo Comparison: Upright abdomen, 10/23/2019. Findings: No free air is seen beneath the diaphragms. No abnormal intra-abdominal masses or calcifica tions are seen. The small bowel remains dilated with air-fluid levels.. There is contrast material in the transverse colon and descending colon from the Gastrografin enema done yesterday. Monitor leads are on the abdominal wall. The oral gastric tube ends within the stomach. XR/XR abdomen min 2V [id number] Impression: 1. No change in dilated small bowel. 2. Gastrografin contrast is seen within the distal colon which is not dilated.
[2019-10-25] MEDS: sennosides-docusate Tablet 1 TAB PO ×2 (09:41→18:09)
[2019-10-25] MEDS: amiodarone 200 mg Tablet PO (09:41)
[2019-10-25] MEDS: metoprolol tartrate 25 mg Tablet PO ×2 (09:42→18:09)
[2019-10-25] MEDS: aspirin 81 mg EC Tablet PO (09:42)
[2019-10-25] MEDS: tamsulosin 0.4 mg Capsule PO (09:43)
[2019-10-25] MEDS: amlodipine 10 mg Tablet PO (09:43)
[2019-10-25] MEDS: lactulose oral liq 20 gm/30 mL UDC 10 GM PO ×2 (09:43→21:55)
--- NOTE | 2019-10-25 10:10 | P.PN_ITS ---
Subjective Subjective: Interval history: Yesterday had a minimal bowel movement, and feels past day very small amount of gas. Yesterday was having some irritation, but not this morning. Abdomen is distended. Overnight was placed on low rate nasal cannula, as he has not been able to wear his CPAP due to NG tube. Denies any shortness of breath to me while not wearing his cannula after returning from using the restroom. Vitals/I&O/Wt Last Vital Signs Temp 98.2 F 10/25/19 08:29 Pulse 118 H 10/25/19 08:29 Resp 20 H 10/25/19 08:29 BP 168/93 10/25/19 08:29 Pulse Ox 97 10/25/19 08:29 10/24/19 10/25/19 10/25/19 22:59 06:59 14:59 Intake Total 613.333 / 557.049 0393 / 2644.333 Output Total 800 / 2000 1150 / 3150 Balance -186.667 / -1386.667 881 / -505.667 Physical Exam Const: COMMON NORMALS: no acute distress, patient oriented x3 and alert NUTRITIONAL APPEARANCE: obese ORIENTATION/CONSCIOUSNESS: Yes awake OTHER: Slightly hard of hearing. HENMT: COMMON NORMALS: oropharynx normal OTHER: NG tube in place. Clamped at the moment of my visit after returning from the restroom. Not currently on oxygen. Neck/C-Spine: COMMON NORMALS: no JVD Resp: COMMON NORMALS: normal respiratory effort (Nasal cannula in place.) and clear to auscultation bilaterally AUSCULTATION: clear to auscultation bilaterally Cardio: COMMON NORMALS: no JVD, regular rhythm, S1 normal heart sound present, S2 normal heart sound present and No murmurs present (Cardio) RHYTHM: regular rhythm HEART SOUNDS: S1 normal heart sound present and S2 normal heart sound present GI: COMMON NORMALS: Normal to inspection, nondistended, normoactive bowel sounds present and non-tender INSPECTION: Yes abdominal distension AUSCULTATION: Yes Hypoactive bowel sounds present OTHER: Healing wound mid abdomen, trocar sites. Extremity: COMMON NORMALS: no joint enlargement and no pedal edema Neuro: COMMON NORMALS: patient oriented x3 and moves all extremities SENSORIUM/ORIENTATION: Yes alert Skin: COMMON NORMALS: no rashes or lesions noted GENERAL SKIN EXAM: no r ashes or lesions noted Urinary Catheter Management^: F: Cath Placed During This Visit: yes, but has since been removed by the nurse Reason for Continuing Indwelling Catheter: Required Immobilization for Trauma or Surgery or Anesthesia Urinary Catheter Date of Insertion: 10/17/19 Urinary Catheter Time of Insertion: 12:00 Date Urinary Catheter Removed: 10/18/19 Time Urinary Catheter Discontinued: 10:39 Data : 10/25/19 05:10 10/25/19 06:57 A&P Assessment and plan (1) Malignant neoplasm of colon: Ileus versus bowel obstruction. NG had to be replaced due to multiple function of prior. Replaced by surgery this morning. Continue LIS. Continue supportive care while recovering from suspected ileus. Started on TPN. Distention of small bowel without definitive transition point, appears to extend over to the anastomotic area on CT prescription with surgery with contrast traversing the anastomosis. Also seen on Gastrografin enema. Continue management per surgery at this time. Status post right hemicolectomy with end-to-end anastomosis 10/16. Continue to mobilize. Status: Acute Qualifiers: Colon location: ascending Qualified Code(s): C18.2 - Malignant neoplasm of ascending colon (2) ASHD (arteriosclerotic heart disease): Currently no symptoms of chest pain. 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 Last stenting done in 2017 per patient. Continue aspirin, metoprolol 25 mg p.o. twice daily. Expected to be prolonged n.p.o. - beta-blockers IV. Status: Acute (3) Diabetes: Glucose elevated without hypoglycemia. Started on TPN. Increased Lantus dose to 20 units. Continue sliding scale. Status: Acute Qualifiers: Diabetes mellitus type: type 2 Diabetes mellitus half-way insulin use: with intermediate card tender use Diabetes mellitus complication status: with circulatory complication Diabetes mellitus complication detail: with other circulatory complications Qualified Code(s): E11.59 - Type 2 diabetes mellitus with other circulatory complications; Z79.4 - retirement (current) use of insulin (4) CHF (congestive heart failure): Would hold off IV fluids for now. Started on TPN. CPAP to continue at nighttime. Status: Acute Qualifiers: Heart failure type: diastolic Heart failure chronicity: chronic Qualified Code(s): I50.32 - Chronic diastolic (congestive) heart failure (5) BMI 45.0-49.9, adult: Could not continue CPAP due to NG tube. Started on low rate nasal cannula oxygen overnight. Status: Acute (6) Sleep apnea: Is on CPAP machine from home. Resume when tolerating. Status: Acute Qualifiers: Sleep apnea type: obstructive Qualified Code(s): G47.33 - Obstructive sleep apnea (adult) (pediatric) (7) Afib: Heart rate currently well controlled Continue metoprolol IV. Continue amiodarone Continue to hold warfarin for now, currently on therapeutic dose of Lovenox which is renally dosed. Not raised to every 12 hours dosing given recent surgery and now ileus vs partial SBO. Coordinate with surgery regarding reinition of warfarin Status: Acute Qualifiers: Atrial fibrillation type: paroxysmal Qualified Code(s): I48.0 - Paroxysmal atrial fibrillation (8) Hypertension: Currently at goal after increased amlodipine dose to 10 mg p.o. daily. Hydralazine IV as needed. Status: Acute (9) CKD (chronic kidney disease): CKD versus KRISTIE on CKD, creatinine with mild improvement. Now appears to be at baseline. No hydronephrosis on abdomen pelvis CT. Avoid nephrotoxins. Started on TPN. Would hold off IVF for now. Monitor I&O w NGT. Monitor respiration. Says breathing comfortably. Status: Acute Attestations Medical Necessity Statement*: Continue hospitalization for assessment management of ileus in the setting of multiple underlying comorbidities including CKD, CHF, A. fib, sleep apnea and more. Coding Level of Care Code Acute [facility] Compliance [facility] Malignant neoplasm of colon C18.2 Colon location: ascending ASHD (arteriosclerotic heart disease) I25.10 Diabetes E11.59; Z79.4 Diabetes mellitus type: type 2 Diabetes mellitus half-way insulin use: with intermediate card tender use Diabetes mellitus complication status: with circulatory complication Diabetes mellitus complication detail: with other circulatory complications CHF (congestive heart failure) I50.32 Heart failure type: diastolic Heart failure chronicity: chronic BMI 45.0-49.9, adult Z68.42 Sleep apnea G47.33 Sleep apnea type: obstructive Afib I48.0 Atrial fibrillation type: paroxysmal Hypertension I10 CKD (chronic kidney disease) N18.9
[2019-10-25 11:08] LABS: Glucose Point of Care 359 mg/dL (70-110)
--- NOTE | 2019-10-25 12:06 | P.PN_ITS ---
Subjective Subjective: Interval history: Patient's NG tube was clamped yesterday, had to be removed and multiple attempts were made to place the NG tube last night but I was able to place an NG tube this morning. Patient had some nausea last night, no flatus or BM, Vitals/I&O/Wt Last Vital Signs Temp 98.2 F 10/25/19 08:29 Pulse 118 H 10/25/19 08:29 Resp 20 H 10/25/19 08:29 BP 168/93 10/25/19 08:29 Pulse Ox 97 10/25/19 08:29 10/24/19 10/25/19 10/25/19 22:59 06:59 14:59 Intake Total 613.333 / 2644.333 2031 / 2644.333 Output Total 800 / 3150 1150 / 3150 Balance -186.667 / -505.667 881 / -505.667 Physical Exam Narrative: EXAM NARRATIVE: Abdomen: Soft, distended, nontender, incision clean dry and intact Urinary Catheter Management^: F: Cath Placed During This Visit: yes, but has since been removed by the nurse Reason for Continuing Indwelling Catheter: Required Immobilization for Trauma or Surgery or Anesthesia Urinary Catheter Date of Insertion: 10/17/19 Urinary Catheter Time of Insertion: 12:00 Date Urinary Catheter Removed: 10/18/19 Time Urinary Catheter Discontinued: 10:39 Data : 10/25/19 05:10 10/25/19 06:57 A&P Assessment and plan (1) S/P right hemicolectomy: 74-year-old gentleman status post extended right hemicolectomy with postop ileus, not resolving CT abdomen pelvis: No evidence of obstruction Gastrografin enema, no evidence of obstruction or anastomotic leak Continue TPN, DC IV fluids NG tube to low intermittent suction Insulin sliding scale SCD for DVT prophylaxis Therapeutic Lovenox due to history of A. fib Protonix for GI prophylaxis Ambulate with physical therapy Appreciate input from hospitalist service Reglan 10 mg IV 3 times daily Tapwater enema today, continue lactulose Daily labs Patient will need continued inpatient stay to ensure resolution of obstruction/ileus Status: Acute Attestations Medical Necessity Statement*: Postop ileus/partial obstruction requiring continued inpatient stay Coding Level of Care Code Acute Undercollar Baster for Chg Fwd Diagnoses S/P right hemicolectomy Z90.49
[2019-10-25] MEDS: ipratropium-albuterol 3 mL Neb INHALATION (15:56)
[2019-10-25 16:50] LABS: Glucose Point of Care 174 mg/dL (70-110)
[2019-10-25] MEDS: magnesium citrate Btl 296 mL 150 ML PO (18:46)
[2019-10-25] MEDS: Fleet Enema 133 mL Enema PR (18:47)
[2019-10-25] MEDS: insulin glargine 100 units/1 mL 20 UNIT SUBCUT (21:57)
[2019-10-25 22:00] LABS: Glucose Point of Care 328 mg/dL (70-110)
[2019-10-26] VITALS (11 sets, daily range): BP systolic 126–178; BP diastolic 69–81; PULSE 89–110; RESP 17–24; TEMP 36.5–37.4; O2SAT 90–96
[2019-10-26 04:17] LABS: Basophils % 0.3 %; Eosinophils % 0.1 %; Hematocrit 43.5 % (42.0-52.0); Hemoglobin 13.6 g/dL (11.7-16.6); Lymphocytes # 0.5 10^3/uL (0.8-4.8); Mean Corpuscular HGB Conc 31.3 g/dL (30.0-36.0); Mean Corpuscular Volume 89.5 fL (80-94); Mean Platelet Volume 11.4 fL (7.4-10.4); Monocytes # 1.2 10^3/uL (0.2-0.9); Monocytes % 17.4 %; Neutrophils # 5.25 10^3/uL (1.8-7.7); Neutrophils % 73.7 %; Nucleated Red Blood Cells % 0 %; Platelet Count 245 10^3/cmm (130-400); Red Blood Count 4.86 10^6/uL (4.1-5.3); Red Cell Distribution Width 15.9 % (12.1-15.1); White Blood Count 7.1 10^3/uL (4.0-10.0)
[2019-10-26 04:48] LABS: Anion Gap 15.9 (5-19); Blood Urea Nitrogen 23 mg/dL (8-23); Carbon Dioxide 27 mmol/L (22-29); Chloride 98 mmol/L (98-107); Glucose 467 mg/dL (65-115); Osmolality Calculated 301 mOsm/kg (285-295); Potassium 3.9 mmol/L (3.5-5.1); Sodium 137 mmol/L (136-145)
[2019-10-26] MEDS: famotidine 20 mg/2 mL INJ IVP ×2 (05:06→15:36)
[2019-10-26] MEDS: enoxaparin 100 mg/mL Syringe SUBCUT (05:32)
[2019-10-26] MEDS: enoxaparin 40 mg/0.4 mL Syringe SUBCUT (05:33)
[2019-10-26] MEDS: metoclopramide 5 mg/mL SDV 2 mL 10 MG IVP ×3 (05:34→21:59)
--- NOTE | 2019-10-26 06:48 | XR_ITS ---
WS: [id number] Abdomen series, Flat and upright 10/26/2019 Clinical Data: SBO/ileus Comparison: 11 series, 10/25/2019 Findings: The distention of the small bowel loops remains the same. There are air-fluid levels throug hout the small bowel. The distal colon remains normal size with minimal Gastrografin contrast within. No free air is seen. There is an air-fluid level in the stomach. The bladder is partly full. There a re monitor leads on the abdominal wall. XR/XR abdomen min 2V [id number] Impression: No change in small bowel obstruction.
--- NOTE | 2019-10-26 06:49 | CT_ITS ---
WS: [id number] CT ABDOMEN PELVIS TECHNIQUE: Noncontrast CT of the abdomen and pelvis with coronal and sagittal reformatted images. CLINICAL INFORMATION: ileus/obstruction after right hemicolectomy COMPARISON: CT October 22, 2019 DLP: 2108.[address] scans at [facility] use at least one of these dose optimization techniques: automat ed exposure control; mA and/or kV adjustment per patient size (includes targeted exams where dose is matched to clinical indication); or iterative reconstruction. FINDINGS: Recent postoperative changes partial colectomy with resection of the right and proximal transverse co kelly. Small bowel anastomosis at the transverse colon. Persistent findings of partial small bowel obst ruction versus ileus with dilated loops of small bowel with air-fluid levels. Small bowel loops measu re 3.8 cm in maximum dimension. Residual colon remains decompressed. Air distended colon transitions to decompressed colon at the splenic fracture unchanged in appearance since the prior examination. No evidence of high-grade stricture at the small bowel anastomosis in the midabdomen. Small bowel loo ps are dilated up to the anastomosis. Fluid distended stomach and proximal small bowel and duodenum w ith air-fluid levels. Noncontrast liver is normal. Vicarious excretion contrast in the gallbladder. Atelectasis in the lung bases. Pleural thickening in the lung bases. Normal spleen. Fatty atrophy of the pancreas. Normal ca liber abdominal aorta. Adrenal glands are normal. Mild renal cortical atrophy. No hydronephrosis. Nor mal caliber abdominal aorta. CT/CT abdomen pelvis wo con [id number] IMPRESSION: 1. Recent postoperative changes right hemicolectomy with mid transverse colon anastomosis. 2. Persistent small bowel dilatation with air-fluid levels not significantly c hanged since October 22, 2019. Persistent air within the colon. 3. No significant narrowing at the anastomosis. Air distended transverse colon . Descending colon is decompressed at the splenic flexure. 4. Air-fluid levels and distention of the stomach and proximal small bowel and duodenum. 5. Sigmoid and left colon diverticulosis. 6. No free fluid in the abdomen or pelvis.
[2019-10-26 07:14] LABS: Glucose Point of Care 428 mg/dL (70-110)
--- NOTE | 2019-10-26 07:38 | PC.NURSE ---
Accu check reported to Dr Lemus [id number], see new orders
[2019-10-26] MEDS: ipratropium-albuterol 3 mL Neb INHALATION ×3 (08:07→20:31)
[2019-10-26] MEDS: AA-Dex 5%-20% w/Lytes 1,000 ML with multivitamin inj 5 ML 83 ML IV ×2 (09:01→17:48)
[2019-10-26] MEDS: metoprolol tartrate 25 mg Tablet PO ×2 (09:07→17:49)
[2019-10-26] MEDS: tamsulosin 0.4 mg Capsule PO (09:07)
[2019-10-26] MEDS: amiodarone 200 mg Tablet PO (09:07)
[2019-10-26] MEDS: sennosides-docusate Tablet 1 TAB PO ×2 (09:07→17:49)
[2019-10-26] MEDS: amlodipine 10 mg Tablet PO (09:08)
[2019-10-26] MEDS: aspirin 81 mg EC Tablet PO (09:08)
[2019-10-26] MEDS: lactulose oral liq 20 gm/30 mL UDC 10 GM PO ×2 (09:12→21:56)
--- NOTE | 2019-10-26 09:20 | PC.SOCIAL ---
IMM Updated Updated pt on Pg 2 IMM. No questions voiced. Provided pt a copy. Signed, dated, & timed copy in chart.
[2019-10-26 11:00] LABS: Glucose Point of Care 353 mg/dL (70-110)
[2019-10-26] MEDS: iohexol 300 mg/mL 50 mL Btl PO (11:24)
--- NOTE | 2019-10-26 12:05 | PC.CHAP ---
Pastoral Care Encounter/Spiritual Assessment Type of Contact [] Declined service technician copier visit [] Patient/Family/Request visit [] Outpatient visit [xx] Follow-up visit [] Physician referral [] Code/Alert [xx] Routine visit [] Staff referral [] Actively dying [] Patient sleeping [] Family support [] [xx] Out of room [] Palliative care [] [] Receiving care in room [] Pre-surgical visit [] Trauma [xx] Long length of stay [] ICU visit [xx] Other: Pt out of room for tests/treatment Relational/Emotional Strength [] Patient feels connected with others/family/visitors/staff [] Distress [] Loneliness/isolation [] Abandonment Spirituality of Patient [] Person of Margaux [] Attends Baptism of their Margaux [] Believes in Prayer [] Reads Bible or Lutheran materials [] There are Spiritual issues to be addressed Medicaid Service Coordinator Interventions [] Prayer [] Active listening [] Non-anxious presence [] Spiritual/emotional support [] Crisis/trauma care [] Spiritual counseling [] Bereavement support [] Provided bereavement packet [] Provided Bible/devotional materials [] Provided toy/stuffed animal, coloring book to patient or family member [] Provided Communion [] Anointing/[place] [] Salvation [] Completed spiritual assessment [] Other: Impact on Illness or Injury [] Angry [] Fearful [] Anxious [] Often cries [] Exhaustion [] Unable to work [] Unable to attend baptism [] Unable to walk/stand [] Unable to read [] Unable to drive [] Unable to eat/drink [] Unable to sleep [] Unable to be with family [] Patient intubated [] Other: Summary Long-term patient. Attempt follow-up again later date Time spent with patient 2 minutes Medicaid Service Coordinator Elisha Berger
[2019-10-26] MEDS: ondansetron 2 mg/ML SDV 2 mL 4 MG IVP (16:41)
[2019-10-26 17:03] LABS: Glucose Point of Care 254 mg/dL (70-110)
[2019-10-26] MEDS: magnesium citrate Btl 296 mL 150 ML PO (17:47)
--- NOTE | 2019-10-26 18:16 | PM.PN ---
Subjective Subjective: Interval history: His NG tube had fallen out yesterday when he sneezed, at present denies any nausea or vomiting, Not significantly distended. Passing flatus today. Vitals/I&O/Wt Last Vital Signs Temp 97.7 F 10/26/19 15:29 Pulse 96 10/26/19 15:29 Resp 18 10/26/19 15:29 BP 141/80 10/26/19 15:29 Pulse Ox 94 10/26/19 15:29 10/26/19 10/26/19 10/26/19 06:59 14:59 22:59 Intake Total 1530 / 2752.167 729.017 / 729.017 Output Total 100 / 1300 Balance 1430 / 1452.167 729.017 / 729.017 Physical Exam Narrative: EXAM NARRATIVE: Abdomen: Soft, distended, nontender, incision clean dry and intact Urinary Catheter Management^: F: Cath Placed During This Visit: yes, but has since been removed by the nurse Reason for Continuing Indwelling Catheter: Required Immobilization for Trauma or Surgery or Anesthesia Urinary Catheter Date of Insertion: 10/17/19 Urinary Catheter Time of Insertion: 12:00 Date Urinary Catheter Removed: 10/18/19 Time Urinary Catheter Discontinued: 10:39 Data : 10/27/19 04:20 10/27/19 04:20 A&P Assessment and plan (1) S/P right hemicolectomy: 74-year-old gentleman status post extended right hemicolectomy with postop ileus, not resolving CT abdomen pelvis: No evidence of obstruction Gastrografin enema, no evidence of obstruction or anastomotic leak Continue TPN, We will hold off on NG tube today Insulin sliding scale SCD for DVT prophylaxis Therapeutic Lovenox due to history of A. fib Protonix for GI prophylaxis Ambulate with physical therapy Appreciate input from hospitalist service Reglan 10 mg IV 3 times daily We will try soapsuds enema and bottle of mag citrate today, continue lactulose Daily labs I will repeat the CT abdomen pelvis to ensure that there is no new obstruction that has developed since her last imaging studies performed earlier this week Patient will need continued inpatient stay to ensure resolution of obstruction/ileus Status: Acute Attestations Medical Necessity Statement*: Persistent postoperative ileus status post right hemicolectomy requiring continued inpatient stay and TPN Coding Level of Care Code Acute [employer]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
--- NOTE | 2019-10-26 18:46 | P.PN_ITS ---
Subjective Subjective: Interval history: He is doing a bit better. This afternoon passed small amount of flatus. NG tube appears got accidentally dislodged sometime last night. He has less eructation. Reports that he does have to work little bit more to breathe, and feels is building up some phlegm. Vitals/I&O/Wt Last Vital Signs Temp 97.7 F 10/26/19 15:29 Pulse 96 10/26/19 15:29 Resp 18 10/26/19 15:29 BP 141/80 10/26/19 15:29 Pulse Ox 94 10/26/19 15:29 10/26/19 10/26/19 10/26/19 06:59 14:59 22:59 Intake Total 1530 / 2752.167 729.017 / 729.017 Output Total 100 / 1300 Balance 1430 / 1452.167 729.017 / 729.017 Physical Exam Const: COMMON NORMALS: no acute distress, patient oriented x3 and alert NUTRITIONAL APPEARANCE: obese ORIENTATION/CONSCIOUSNESS: Yes awake OTHER: Speaking in full sentences. HENMT: COMMON NORMALS: oropharynx normal OTHER: Nasal cannula on. Neck/C-Spine: COMMON NORMALS: no JVD Resp: COMMON NORMALS: normal respiratory effort (Nasal cannula in place.) AUSCULTATION: rhonchi (Minimal) Cardio: COMMON NORMALS: no JVD, regular rhythm, S1 normal heart sound present, S2 normal heart sound present and No murmurs present (Cardio) RHYTHM: regular rhythm HEART SOUNDS: S1 normal heart sound present and S2 normal heart sound present GI: COMMON NORMALS: Normal to inspection, nondistended, normoactive bowel sounds present and non-tender INSPECTION: Yes abdominal distension AUSCULTATION: Yes Hypoactive bowel sounds present OTHER: Healing wound mid abdomen, trocar sites. Extremity: COMMON NORMALS: no joint enlargement and no pedal edema Neuro: COMMON NORMALS: patient oriented x3 and moves all extremities SENSO RIUM/ORIENTATION: Yes alert Skin: COMMON NORMALS: no rashes or lesions noted GENERAL SKIN EXAM: no rashes or lesions noted Urinary Catheter Management^: F: Cath Placed During This Visit: yes, but has since been removed by the nurse Reason for Continuing Indwelling Catheter: Required Immobilization for Trauma or Surgery or Anesthesia Urinary Catheter Date of Insertion: 10/17/19 Urinary Catheter Time of Insertion: 12:00 Date Urinary Catheter Removed: 10/18/19 Time Urinary Catheter Discontinued: 10:39 Data : 10/26/19 03:35 10/26/19 03:35 A&P Assessment and plan (1) Malignant neoplasm of colon: Ileus versus bowel obstruction. Today appears to perhaps show little bit of improvement. Passing small amount of flatus this afternoon. Little bit less eructation. NG tube appears accidentally dislodged sometime last night. Continue supportive care while recovering from suspected ileus. Started on TPN. Slightly harder work of breathing subjectively noted by patient with complaint of some phlegm buildup. Saturation consistent on 2 L nasal cannula. Will check chest x-ray. As needed breathing treatments. Distention of small bowel without definitive transition point, appears to extend over to the anastomotic area on CT prescription with surgery with contrast traversing the anastomosis. Also seen on Gastrografin enema. Continue management per surgery at this time. Status post right hemicolectomy with end-to-end anastomosis 10/16. Continue to mobilize. Status: Acute Qualifiers: Colon location: ascending Qualified Code(s): C18.2 - Malignant neoplasm of ascending colon (2) ASHD (arteriosclerotic heart disease): Currently no symptoms of chest pain. 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 Last stenting done in 2017 per patient. Continue aspirin, metoprolol 25 mg p.o. twice daily. Expected to be prolonged n.p.o. - beta-blockers IV. Status: Acute (3) Diabetes: Glucose elevated without hypoglycemia. Started on TPN. Increased Lantus dose to 22 units. Sliding scale to aggressive. Status: Acute Qualifiers: Diabetes mellitus type: type 2 Diabetes mellitus long term care phlebotomist insulin use: with long term care phlebotomist use Diabetes mellitus complication status: with circulatory complication Diabetes mellitus complication detail: with other circulatory complications Qualified Code(s): E11.59 - Type 2 diabetes mellitus with other circulatory complications; Z79.4 - long-term (current) use of insulin (4) CHF (congestive heart failure): Would hold off IV fluids for now. Started on TPN. Status: Acute Qualifiers: Heart failure type: diastolic Heart failure chronicity: chronic Qualified Code(s): I50.32 - Chronic diastolic (congestive) heart failure (5) BMI 45.0-49.9, adult: Could not continue CPAP due to NG tube. Started on low rate nasal cannula oxygen overnight. Status: Acute (6) Sleep apnea: Is on CPAP machine from home. Resume when tolerating. Status: Acute Qualifiers: Sleep apnea type: obstructive Qualified Code(s): G47.33 - Obstructive sleep apnea (adult) (pediatric) (7) Afib: Heart rate currently well controlled Continue metoprolol IV. Continue amiodarone Continue to hold warfarin for now, currently on therapeutic dose of Lovenox which is renally dosed. Not raised to every 12 hours dosing given recent surgery and now ileus vs partial SBO. Coordinate with surgery regarding reinition of warfarin Status: Acute Qualifiers: Atrial fibrillation type: paroxysmal Qualified Code(s): I48.0 - Paroxysmal atrial fibrillation (8) Hypertension: Currently at goal after increased amlodipine dose to 10 mg p.o. daily. Hydralazine IV as needed. Status: Acute (9) CKD (chronic kidney disease): CKD versus KRISTIE on CKD, creatinine with mild improvement. Now appears to be at baseline. No hydronephrosis on abdomen pelvis CT. Avoid nephrotoxins. Started on TPN. Would hold off IVF for now. Monitor I&O w NGT. Monitor res piration. Says breathing comfortably. Status: Acute Attestations Medical Necessity Statement*: Continue admission for assessment of management of ileus, supportive care, monitoring of respiratory status and assessment of dyspnea. 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[facility] Diagnoses Malignant neoplasm of colon C18.2 Colon location: ascending ASHD (arteriosclerotic heart disease) I25.10 Diabetes E11.59; Z79.4 Diabetes mellitus type: type 2 Diabetes mellitus long term care phlebotomist insulin use: with mcc use Diabetes mellitus complication status: with circulatory complication Diabetes mellitus complication detail: with other circulatory complications CHF (congestive heart failure) I50.32 Heart failure type: diastolic Heart failure chronicity: chronic BMI 45.0-49.9, adult Z68.42 Sleep apnea G47.33 Sleep apnea type: obstructive Afib I48.0 Atrial fibrillation type: paroxysmal Hypertension I10 CKD (chronic kidney disease) N18.9
--- NOTE | 2019-10-26 18:47 | XRR_ITS ---
PROCEDURE INFORMATION: Exam: XR Chest, 1 View Exam date and time: 10/26/2019 6:48 PM Age: 74 years old Clinical indication: Dyspnea TECHNIQUE: Imaging protocol: XR of the chest Views: 1 view. COMPARISON: CR XR chest 1V portable [id number] 10/24/2019 11:33 AM FINDINGS: The lung barlow are hypoventilated. There are increased markings throughout the lungs. There is no consolidation. There is no pleural effusion or pneumothorax. There is cardiomegaly. There is a left-sided PICC line with tip in the superior vena cava. XR/XR chest 1V portable [id number] IMPRESSION: 1. The hypoventilated lungs with increased markings throughout the lungs. This could be due to the shallow inspiration. 2. No consolidation. 3. Cardiomegaly.
[2019-10-26 21:43] LABS: Glucose Point of Care 369 mg/dL (70-110)
[2019-10-26] MEDS: insulin glargine 100 units/1 mL 22 UNIT SUBCUT (21:56)
[2019-10-27] VITALS (7 sets, daily range): BP systolic 112–133; BP diastolic 65–81; PULSE 81–108; RESP 16–22; TEMP 36.5–37; O2SAT 93–95
[2019-10-27] MEDS: famotidine 20 mg/2 mL INJ IVP (04:04)
[2019-10-27] MEDS: ondansetron 2 mg/ML SDV 2 mL 4 MG IVP (05:00)
[2019-10-27 05:23] LABS: Basophils % 0.2 %; Eosinophils % 0.1 %; Hematocrit 42.9 % (42.0-52.0); Hemoglobin 13.2 g/dL (11.7-16.6); Lymphocytes # 0.8 10^3/uL (0.8-4.8); Lymphocytes % 10.1 %; Mean Corpuscular HGB Conc 30.8 g/dL (30.0-36.0); Mean Corpuscular Hemoglobin 27.7 pg (28.0-34.0); Mean Corpuscular Volume 90.1 fL (80-94); Mean Platelet Volume 11.8 fL (7.4-10.4); Monocytes # 1.5 10^3/uL (0.2-0.9); Monocytes % 17.8 %; Neutrophils # 5.87 10^3/uL (1.8-7.7); Neutrophils % 70.4 %; Nucleated Red Blood Cells % 0 %; Platelet Count 246 10^3/cmm (130-400); Red Blood Count 4.76 10^6/uL (4.1-5.3); Red Cell Distribution Width 16.1 % (12.1-15.1); White Blood Count 8.4 10^3/uL (4.0-10.0)
[2019-10-27 06:49] LABS: Blood Urea Nitrogen 29 mg/dL (8-23); Calcium 9.1 mg/dL (8.5-10.5); Carbon Dioxide 21 mmol/L (22-29); Chloride 92 mmol/L (98-107); Glucose 441 mg/dL (65-115); Osmolality Calculated 288 mOsm/kg (285-295); Sodium 131 mmol/L (136-145)
[2019-10-27 07:00] LABS: Anion Gap 22.3 (5-19); Potassium 4.3 mmol/L (3.5-5.1)
[2019-10-27 07:07] LABS: Glucose Point of Care 405 mg/dL (70-110)
[2019-10-27] MEDS: LORazepam 2 mg/mL INJ 1 mL 0.5 MG IVP (07:25)
--- NOTE | 2019-10-27 07:30 | PC.NURSE ---
Dr Partida to patients room, inserted NG tube, size 14 fr. 1000 cc of green/brown liquid in suction canister, suction canister changed suction turned to intermittent.patient premedicated with Ativan before procedure, tolerated well
--- NOTE | 2019-10-27 07:46 | PM.PN ---
Subjective Subjective: Interval history: Patient had more flatus yesterday, had a bloody bowel movement last night.He is feeling a bit distended and nauseated this morning Vitals/I&O/Wt Last Vital Signs Temp 98.6 F 10/27/19 07:16 Pulse 108 H 10/27/19 07:16 Resp 18 10/27/19 07:16 BP 133/65 10/27/19 07:16 Pulse Ox 93 10/27/19 07:16 10/26/19 10/27/19 10/27/19 22:59 06:59 14:59 Intake Total 2050.017 / 2050. Output Total 300 / 360 60 / 360 Balance 1751.017 / 1691.017 -60 / 169.017 Physical Exam Narrative: EXAM NARRATIVE: Abdomen: Soft, distended, nontender, incision clean dry and intact Urinary Catheter Management^: F: Cath Placed During This Visit: yes, but has since been removed by the nurse Reason for Continuing Indwelling Catheter: Required Immobilization for Trauma or Surgery or Anesthesia Urinary Catheter Date of Insertion: 10/17/19 Urinary Catheter Time of Insertion: 12:00 Date Urinary Catheter Removed: 10/18/19 Time Urinary Catheter Discontinued: 10:39 Data : 10/27/19 04:20 10/27/19 04:20 A&P Assessment and plan (1) S/P right hemicolectomy: 74-year-old gentleman status post extended right hemicolectomy with postop ileus, not resolving CT abdomen pelvis 10/22/2019: No evidence of obstruction Gastrografin enema 10/23/2019:, no evidence of obstruction or anastomotic leak Repeat CT abdomen and pelvis 10/26/2019: Persistent postop ileus with air and contrast in the colon Continue TPN, Insulin sliding scale SCD for DVT prophylaxis Therapeutic Lovenox due to history of A. fib Protonix for GI prophylaxis Ambulate with physical therapy Appreciate input from hospitalist service Reglan 10 mg IV 3 times daily Daily labs Patient is feeling more distended this morning, plan for NG tube today and plan for 1 more bottle of magnesium citrate today. Patient will need continued inpatient stay to ensure resolution of obstruction/ileus Status: Acute Attestations Medical Necessity Statement*: Severe postop ileus requiring continued inpatient stay to ensure resolution of ileus Coding Level of Care Code Acute [employer] for [facility] Diagnoses S/P right hemicolectomy Z90.49
[2019-10-27] MEDS: metoclopramide 5 mg/mL SDV 2 mL 10 MG IVP (07:52)
[2019-10-27] MEDS: AA-Dex 5%-20% w/Lytes 1,000 ML with multivitamin inj 5 ML 83 ML IV (08:44)
--- NOTE | 2019-10-27 09:44 | PC.NURSE ---
patient called wants to talk to Dr Partida about transfering patient to [facility] in [place], called and gave him wifes phone number
[2019-10-27] MEDS: aspirin 81 mg EC Tablet PO (10:00)
[2019-10-27] MEDS: amiodarone 200 mg Tablet PO (10:00)
[2019-10-27] MEDS: amlodipine 10 mg Tablet PO (10:00)
[2019-10-27] MEDS: metoprolol tartrate 25 mg Tablet PO (10:00)
[2019-10-27] MEDS: tamsulosin 0.4 mg Capsule PO (10:00)
[2019-10-27] MEDS: sennosides-docusate Tablet 1 TAB PO (10:00)
[2019-10-27] MEDS: lactulose oral liq 20 gm/30 mL UDC 10 GM PO (10:15)
[2019-10-27 10:53] LABS: Glucose Point of Care 477 mg/dL (70-110)
--- NOTE | 2019-10-27 11:14 | PM.TDS ---
Transfer Summary Providers Date of Admission: 10/17/19 08:19 Date of Discharge: 10/27/19 Attending Provider at Admission: Jackson Partida MD Attending Provider at Transfer: Jackson Partida MD Primary Care Provider: Armani Ferrara DO Anticipated Date of Transfer: Anticipated date of transfer: 10/27/19 Receiving Facility & Provider: Receiving Provider: Dr. Meredith Receiving facility: [facility] Diagnoses at Discharge Discharge Diagnosis (1) S/P right hemicolectomy: Status: Resolved Reason for Visit Reason for Visit: Colon Mass Hospital Course Hospital Course: This is a 74-year-old male with a history of colon polyps who had been having some black stools and underwent a colonoscopy on 10/12/[address] Miranda. There was a large mass in the distal ascending colon and couple of large polyps in the proximal transverse colon which were partially excised. 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 No subsequent flatus or BM, started on therapeutic Lovenox due to history of atrial fibrillation which was renally dosed 10/22/2019: CT abdomen pelvis with oral contrast 1. Marked small bowel dilatation extending to anastomotic site at the level of the mid transverse colon, without a focal transition zone. 2. Status post partial colectomy with surgical resection of the right and proximal transverse colon. Left-sided colonic diverticula and diminution in caliber at the junction of the distal transverse colon and splenic flexure. 10/23/2019: Gastrografin enema No evidence of colonic stricture or obstruction. Contrast rapidly traverses the splenic fracture and transverse colon, as well as the anastomosis 10/24/2019:PICC line placed, TPN started, and was given multiple enemas 10/25/2019: NG tube was clogged and had to be removed and a new wound could not be placed overnight by the nursing staff, I placed a new NG tube with about 1 L drainage., Still no flatus or BM 10/26/2019: NG tube fell out, further enemas given, passing flatus, had a small BM and a bloody bowel movement 10/27/2019: Patient complained of nausea and abdominal distention and a new NG tube was placed with drainage of about 2 L, passing flatus. Patient's wanted him transferred to [facility] for further care, I informed the patient and his about the pathology results. Patient has been accepted by Dr. Meredith Colon, right, extended hemicolectomy ? Adenocarcinoma. ? G1: Well differentiated. ? Tumor site: Ascending and transverse colonic masses (3 lesions, 1 mass and 2 polyps). ? Tumor extension: Tumor invades the submucosa (pT1). ? Tumor size: 4.5 cm. ? All margins are uninvolved by invasive carcinoma. Closest margin: Distal margin: 17 cm. ? All other margins are uninvolved (distal margin and mesenteric margin) ? Lymphovascular invasion: Not identified. ? Number of lymph nodes examined: 16 lymph nodes. ? Number of lymph nodes involved: 0. No regional lymph node metastasis. ? 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 ? Appendix and small bowel: Minimal histologic changes. No malignancy identified. ? AJCC eighth edition TNM staging: pT1 pN0 Comorbidities Diabetes mellitus: Currently on insulin sliding scale Congestive heart failure: Currently on amiodarone and IV metoprolol Atrial fibrillation: Subcutaneous therapeutic Lovenox, holding off on Coumadin Respiratory: Uses CPAP at night, O2 during the day occasionally Hypertension: Amlodipine, hydralazine as needed Nutrition: N.p.o. on TPN since 10/23/2019 Chronic kidney disease: Creatinine stable around 1.8 ID: Afebrile throughout the hospital stay, WBC is 8 today, received 2 dose of postop antibiotics Discharge Summary: Plan for transfer to [facility] Physical Exam Narrative: EXAM NARRATIVE: Abdomen: Soft, distended, nontender, incision clean dry intact, NG tube in place PICC line in place on TPN Urinary Catheter Management^: F: Cath Placed During This Visit: yes, but has since been removed by the nurse Reason for Continuing Indwelling Catheter: Required Immobilization for Trauma or Surgery or Anesthesia Urinary Catheter Date of Insertion: 10/17/19 Urinary Catheter Time of Insertion: 12:00 Date Urinary Catheter Removed: 10/18/19 Time Urinary Catheter Discontinued: 10:39 TS Data Data Completed and Pending: Completed Studies During Hospitalization Category Date Time Status CT abdomen pelvis wo con 03279 Rout ine Cat Scan 10/22/19 10:[address] abdomen pelvis wo con 32712 Rout ine Cat Scan 10/26/19 06:49 Completed CXRP [XR chest 1V portable 10121] R outine Exams 10/24/19 11:05 Completed FL enema w gastro grafin 08389 Routi ne Exams 10/23/19 11:30 Completed XR abdomen min 2V 03744 Routine Exams 10/20/19 10:52 Completed XR abdomen min 2V 72458 Routine Exams 10/22/19 06:01 Completed XR abdomen min 2V 00170 Routine Exams 10/23/19 06:55 Completed XR abdomen min 2V 43003 Routine Exams 10/25/19 08:23 Completed XR abdomen min 2V 89339 Routine Exams 10/26/19 06:48 Completed XR acute abdomen series 95942 Routi ne Exams 10/21/19 06:00 Completed XR chest 1V luisa ble 73892 AM LABS Exams 10/18/19 04:00 Completed XR chest 1V luisa ble 10681 Routine Exams 10/26/19 18:47 Completed Pathology: Surgic al [PTH] Routine Pth 10/17/19 15:08 Completed Pending at discharge Category Date Time Status Basic Metabolic P irasema AM LABS Lab 10/28/19 04:00 Ordered Basic Metabolic P irasema AM LABS Lab 10/29/19 04:00 Ordered Basic Metabolic P irasema AM LABS Lab 10/30/19 04:00 Ordered Complete Blood Co unt w/Auto AM LABS Lab 10/28/19 04:00 Ordered Complete Blood Co unt w/Auto AM LABS Lab 10/29/19 04:00 Ordered Complete Blood Co unt w/Auto AM LABS Lab 10/30/19 04:00 Ordered Labs from last 24 hours 10/27/19 10/27/19 10/27/19 10:37 06:34 04:20 WBC RBC Hgb Hct MCV MCH MCHC RDW Plt Count MPV Neut % (Auto) Lymph % (Auto) [place] % (Auto) Eos % (Auto) Baso % (Auto) Neut # (Auto) Lymph # (Auto) [place] # (Auto) Eos # (Auto) Baso # (Auto) Nucleated RBC % (a uto) Nucleated RBCs # Sodium 131 L Potassium 4.3 Chloride 92 L Carbon Dioxide 21 L Anion Gap 22.3 H BUN 29 H Creatinine 1.8 H GFR Calculation Not Reportable Glucose 441 H POC Glucose 477 405 Calculated Osmolal ity 288 Calcium 9.1 10/27/19 10/26/19 10/26/19 04:20 21:29 16:39 WBC 8.4 RBC 4.76 Hgb 13.2 Hct 42.9 MCV 90.1 MCH 27.7 L MCHC 30.8 RDW 16.1 H Plt Count 246 MPV 11.8 H Neut % (Auto) 70.4 Lymph % (Auto) 10.1 [place] % (Auto) 17.8 Eos % (Auto) 0.1 Baso % (Auto) 0.2 Neut # (Auto) 5.87 Lymph # (Auto) 0.8 [place] # (Auto) 1.5 H Eos # (Auto) 0.0 Baso # (Auto) 0.0 Nucleated RBC % (a uto) 0 Nucleated RBCs # 0.0 Sodium Potassium Chloride Carbon Dioxide Anion Gap BUN Creatinine GFR Calculation Glucose POC Glucose 369 254 Calculated Osmolal ity Calcium Vitals: Last Vital Signs Temp 98.6 F 10/27/19 07:16 Pulse 108 H 10/27/19 07:16 Resp 18 10/27/19 07:16 BP 133/65 10/27/19 07:16 Pulse Ox 93 10/27/19 07:16 TS Medications Medications Home Medications warfarin 3 mg tablet 3 mg PO .COMPLEX #36 tab 05/28/19 [Rx Confirmed 10/16/19] tamsulosin 0.4 mg capsule 0.4 mg PO DAILY #30 cap 06/04/19 [Rx Confirmed 10/17/19] warfarin 4 mg tablet 4 mg PO .COMPLEX #48 tab 07/10/19 [Rx Confirmed 10/16/19] amiodarone 200 mg tablet 200 mg PO DAILY 08/21/19 [History Confirmed 10/17/19] aspirin 81 mg tablet,delayed release 81 mg PO DAILY 08/21/19 [History Confirmed 10/16/19] ferrous sulfate 325 mg (65 mg iron) tablet 325 mg PO BID 08/21/19 [History Confirmed 10/17/19] insulin NPH isoph U-100 human 100 unit/mL subcutaneous suspension 30 unit SUBCUT BID 08/21/19 [History Confirmed 10/17/19] pioglitazone 45 mg tablet 45 mg PO DAILY #30 tab 09/19/19 [Rx Confirmed 10/17/19] cranberry 500 mg capsule 500 mg PO DAILY cap 10/01/19 [History Confirmed 10/17/19] bumetanide 2 mg PO DAILY 10/10/19 [History Confirmed 10/17/19] metoprolol tartrate 25 mg tablet 25 mg PO BID #60 tab 10/11/19 [Rx Confirmed 10/17/19] erythromycin 500 mg tablet 500 mg PO .COMPLEX #3 tab 10/15/19 [Rx Confirmed 10/17/19] neomycin 500 mg tablet 1 gm PO .COMPLEX #6 tab 10/15/19 [Rx Confirmed 10/17/19] insulin regular human [Novolin R Regular U-100 Insuln] 10 unit SUBCUT BID 10/16/19 [History Confirmed 10/17/19] Active Medications Acetaminophen (Tylenol) 650 mg PO Q6H PRN PRN Reason: MILD PAIN OR INCREASE TEMP Albuterol/Ipratropium (Duoneb) 3 ml INHALATION Q6H PRN PRN Reason: SHORTNESS OF BREATH Last Admin: 10/26/19 20:31 Dose: 3 ml Documented by: Amiodarone HCl (Cordarone) 200 mg PO DAILY [facility] Last Admin: 10/27/19 10:00 Dose: 200 mg Documented by: Amlodipine Besylate (Norvasc) 10 mg PO DAILY [facility] Last Admin: 10/27/19 10:00 Dose: 10 mg Documented by: Aspirin (Aspirin Ec) 81 mg PO DAILY [facility] Last Admin: 10/27/19 10:00 Dose: 81 mg Documented by: Bumetanide (Bumex) 2 mg PO DAILY [facility] Last Admin: 10/21/19 09:52 Dose: 2 mg Documented by: Dextrose (D50w) 25 ml IVP ONCE PRN; Protocol PRN Reason: hypoglycemia protocol Dextrose (D50w) 50 ml IVP PRN PRN; Protocol PRN Reason: hypoglycemia protocol Enoxaparin Sodium (Lovenox) 100 mg SUBCUT Q24H [facility] Last Admin: 10/27/19 06:41 Dose: Not Given Documented by: Enoxaparin Sodium (Lovenox) 40 mg SUBCUT Q24H [facility] Last Admin: 10/27/19 06:42 Dose: Not Given Documented by: Famotidine (Pepcid Inj) 20 mg IVP Q12H [facility] Last Admin: 10/27/19 04:04 Dose: 20 mg Documented by: Glucagon (Glucagen) 1 mg IM ONCE PRN; Protocol PRN Reason: Adult Acute Hypoglycemia Prot. Hydralazine HCl (Apresoline) 10 mg IVP Q4H PRN PRN Reason: SBP >170 Dextrose (D5w) 500 mls @ 100 mls/hr IV ONCE PRN; Protocol PRN Reason: Adult Acute Hypoglycemia Prot Multivitamins 5 ml/ Amino (Acids/Electrolytes) 1,005 mls @ 83 mls/hr IV .Q12H7M [facility] Last Admin: 10/27/19 08:44 Dose: 83 mls/hr Documented by: Fat Emulsion Intravenous (Intralipid 20%) 125 mls @ 10.417 mls/hr IV Q24H [facility] Last Admin: 10/26/19 17:47 Dose: 10.4 mls/hr Documented by: Insulin Aspart (Novolog) 0 unit SUBCUT WM&BEDTIME [facility]; Protocol Last Admin: 10/27/19 08:49 Dose: 14 unit Documented by: Insulin Glargine (Lantus) 22 unit SUBCUT BEDTIME [facility] Last Admin: 10/26/19 21:56 Dose: 22 unit Documented by: Lactulose (Constulose) 10 gm PO Q12H [facility] Last Admin: 10/27/19 10:15 Dose: 10 gm Documented by: Metoclopramide HCl (Reglan) 10 mg IVP Q8H [facility] Last Admin: 10/27/19 07:52 Dose: 10 mg Documented by: Metoprolol Tartrate (Lopressor) 25 mg PO BID [facility] Last Admin: 10/27/19 10:00 Dose: 25 mg Documented by: Ondansetron HCl (Zofran) 4 mg IVP Q4H PRN PRN Reason: NAUSEA AND VOMITING Last Admin: 10/27/19 05:00 Dose: 4 mg Documented by: Phenol (Phenaseptic) 3 spray MUCOUS MEM Q2H PRN PRN Reason: SORE THROAT Last Admin: 10/23/19 17:34 Dose: 3 spray Documented by: Senna/Docusate Sodium (Senna-S) 1 tab PO BID [facility] Last Admin: 10/27/19 10:00 Dose: 1 tab Documented by: Simethicone (Mylicon Tab) 80 mg PO QID PRN PRN Reason: FLATULENCE Last Admin: 10/19/19 08:54 Dose: 80 mg Documented by: Tamsulosin HCl (Flomax) 0.4 mg PO DAILY [facility] Last Admin: 10/27/19 10:00 Dose: 0.4 mg Documented by: Discharge Plan Discharge Patient Disposition: Xfer Short-Term Hosp Condition: Stable Prescriptions: Continued cranberry 500 mg capsule 500 mg PO DAILY RF: 0 warfarin 4 mg tablet 4 mg PO .COMPLEX Qty: 48 RF: 1 Hold Instructions: Resume on 10/23/19. warfarin 3 mg tablet 3 mg PO .COMPLEX Qty: 36 RF: 1 Hold Instructions: Resume on 11/22/19. tamsulosin 0.4 mg capsule 0.4 mg PO DAILY Qty: 30 RF: 11 amiodarone 200 mg tablet 200 mg PO DAILY RF: 0 aspirin [Aspir-81] 81 mg tablet,delayed release (DR/EC) 81 mg PO DAILY RF: 0 ferrous sulfate 325 mg (65 mg iron) tablet 325 mg PO BID RF: 0 Novolin N NPH U-100 Insulin 100 unit/mL suspension 30 unit SUBCUT BID RF: 0 pioglitazone [Actos] 45 mg tablet 45 mg PO DAILY Qty: 30 RF: 11 metoprolol tartrate 25 mg tablet 25 mg PO BID Qty: 60 RF: 4 bumetanide 2 mg tablet 2 mg PO DAILY RF: 0 Novolin R Regular U-100 Insuln 100 unit/mL Solution 10 unit SUBCUT BID RF: 0 Discontinued erythromycin 500 mg tablet 500 mg PO .COMPLEX Qty: 3 RF: 0 neomycin 500 mg tablet 1 gm PO .COMPLEX Qty: 6 RF: 0 Discharge Orders: Discharge Order (Routine); Ordered 10/27/19 Ordered By: Jackson Partida Referrals: Jackson Partida MD [Physician] - 6 Weeks Transfer Attestations Time Spent in Transfer Care*: less than 30 min Quality Metrics Clinical Quality Measures: During this hospital stay, did patient experience: None Coding Level of Care Code Acute Construction Services Technician for Chg Fwd Diagnoses S/P right hemicolectomy Z90.49
--- NOTE | 2019-10-27 13:45 | PC.NURSE ---
patient report called to Sarai Dacosta RN at [facility]
--- NOTE | 2019-10-27 14:45 | PC.NURSE ---
patient report given to [facility] ambulance, patient transferred to stretcher by ambulance crew, transferr paperwork given to crew,patients CPAP, Cell phone, chemical process engineer, bag of clothes given to ambulance crew.patients called to let know departure time.
== END 2019-10-27 14:45 | disposition short-term general hospital (02) | DRG 330 ==
PROVIDERS: Internal Medicine; Student in an Organized Health Care Education/Training Program; Admitting Provider Surgery; PCP Family Medicine; Visit Provider Surgery
PROC: 0DTF4ZZ Resection of Right Large Intestine, Percutaneous Endoscopic Approach (ICD-10-PCS; CPT 44205; principal; 2019-10-17 10:45)
DX: C18.2 Malignant neoplasm of ascending colon (principal); I13.0 Hypertensive heart and chronic kidney disease with heart failure and stage 1 through stage 4 chronic kidney disease, or unspecified chronic kidney disease; I50.32 Chronic diastolic (congestive) heart failure; Z68.42 Body mass index [BMI] 45.0-49.9, adult; K91.89 Other postprocedural complications and disorders of digestive system; K56.7 Ileus, unspecified; I48.0 Paroxysmal atrial fibrillation; I25.10 Atherosclerotic heart disease of native coronary artery without angina pectoris; Z95.5 Presence of coronary angioplasty implant and graft; E11.22 Type 2 diabetes mellitus with diabetic chronic kidney disease; N18.9 Chronic kidney disease, unspecified; G47.33 Obstructive sleep apnea (adult) (pediatric); E66.9 Obesity, unspecified; Z79.01 Long term (current) use of anticoagulants; Z79.82 Long term (current) use of aspirin; Z79.4 Long term (current) use of insulin; K57.30 Diverticulosis of large intestine without perforation or abscess without bleeding
CPT/HCPCS: 12345; 36415; 36416; 36569; 36592; 71045; 74019; 74022; 74176; 74270; 80048; 80053; 82962; 83880; 85007; 85025; 85610; 86706; 86803; 87340; 87635; 87806; 88309; 93005; 94640; 96372; 96375; 97110; 97116; 97161; 97530; C9290; J0690; J1650; J1815 ×2; J2060; J2270; J2405; J2704; J2765; J3010; J3490; J7030; Q9963; Q9967; S0030